=== PATIENT | male | born 1960 | race Caucasian/White ===

== ENCOUNTER 2020-12-19 11:39 | Outpatient (REF) | payer BC, SELFPAY ==
[2020-12-19 13:59] LABS: MANUAL DIFF FLAG NO
[2020-12-19 14:03] LABS: Basophils Absolute Auto 0.1 X10*3/uL (0.0-0.2); Basophils Percent Auto 1.2 % (0-2); Eosinophils Absolute Auto 0.2 X10*3/uL (0.0-0.4); Eosinophils Percent Auto 3.7 % (0-4); Hematocrit 44.7 % (42-52); Hemoglobin 15.6 g/dl (14.0-18.0); Imm Gran Abs Auto 0.03 X10*3/uL (0.00-0.03); Imm Gran Pct Auto 0.5 % (0.0-0.4); Lymphocytes Absolute Auto 1.4 X10*3/uL (1.2-4.9); Lymphocytes Percent Auto 24.9 % (20-40); Mean Corpuscular HGB Conc 34.9 g/dl (31.0-36.0); Mean Corpuscular Hemoglobin 30.6 pg (27.0-33.0); Mean Corpuscular Volume 87.8 fL (80-98); Mean Platelet Volume 9.4 fL (9.4-12.4); Monocytes Absolute Auto 0.5 X10*3/uL (0.1-1.2); Monocytes Percent Auto 9.6 % (2-11); Neutrophils Absolute Auto 3.4 X10*3/uL (2.0-8.3); Neutrophils Percent Auto 60.1 % (45-73); Platelet Count 241 X10*3/uL (160-400); Red Blood Count 5.09 X10*6/uL (4.60-5.80); Red Cell Distribution Width 11.6 % (11.0-16.0); White Blood Count 5.6 X10*3/uL (4.8-10.8)
[2020-12-19 14:05] LABS: Glucose Urine UA NEG (NEG); Leukocyte Esterase Urine NEG (NEG); Nitrite Urine NEG (NEG); PH 5.5 (5.0-8.0); Specific Gravity - Urine >= 1.030 (1.005-1.025); Urine Blood 1+ (NEG); Urine Ketones NEG (NEG); Urine Protein NEG (NEG-TRACE)
[2020-12-19 14:09] LABS: Appearance Urine HAZY; Color Urine YELLOW
[2020-12-19 14:15] LABS: Mucus Urine 2+ /LPF; Prothrombin Time 11.5 SEC (10.8-13.0); Squamous Epithelial Cell Urine 1+ /LPF
[2020-12-19 14:22] LABS: Estimated Average Glucose 91 mg/dL; Hemoglobin A1c % 4.8 %
[2020-12-19 14:24] LABS: Alanine Aminotransferase 30 U/L (0-40); Albumin Level 4.4 g/dL (3.5-5.0); Alkaline Phosphatase 50 U/L (39-117); Anion Gap 13 (12-20); Aspartate Amino Transferase 17 U/L (5-37); Bilirubin Total 1.1 mg/dL (0.0-1.0); Blood Urea Nitrogen 16 mg/dL (9-16); Calcium 9.3 mg/dL (8.4-10.2); Carbon Dioxide 27 mmol/L (22-29); Chloride 104 mmol/L (96-108); Estimated Glomerular Filt Rate > 60; Glucose Random 96 mg/dL (60-115); Potassium 3.8 mmol/L (3.3-5.1); Sodium 140 mmol/L (135-145)
[2020-12-19 14:47] LABS: TSH reflex Free T4 3.09 uIU/mL (0.32-4.0)
== END 2020-12-19 11:40 | disposition home or self-care (01) ==
LOC: HO.HMGCLDS 11:39
PROVIDERS: PCP Internal Medicine; Visit Provider Internal Medicine
DX: Z01.818 Encounter for other preprocedural examination (principal); E03.9 Hypothyroidism, unspecified; K21.9 Gastro-esophageal reflux disease without esophagitis; I44.4 Left anterior fascicular block; R94.31 Abnormal electrocardiogram [ECG] [EKG]
CPT/HCPCS: 36415; 80053; 81001; 81003; 83036; 84443; 85025; 85610

== ENCOUNTER → 2020-12-26 10:35 | Outpatient (BNVA) | payer BC, SELFPAY | PROVIDERS: PCP Internal Medicine; Visit Provider Internal Medicine Cardiovascular Disease ==

== ENCOUNTER → 2020-12-27 09:28 | Outpatient (REF) | payer BC, SELFPAY ==
--- NOTE | ~2020-12-27 | NM_ITS ---
Lexiscan Myocardial perfusion study Indication: Preoperative cardiovascular examination Technique: The patient was brought in for a Lexiscan perfusion study on 12/27/2020 and was injected 0.4 mg of Lexiscan intravenously. Within a minute of this injection 35 mCi of sestamibi was given intravenously. Images were obtained using the SPECT gamma camera interlaced with the gating device. Images were obtained in supine position. Resting perfusion study was performed on 12/28/2020. Patient was administered 35 mCi of sestamibi intravenously at rest. Images were then obtained in supine position. Total DLP 111mGy-cm. Images were processed with the software and compared side to side in short axis, horizontal long axis and vertical long axis views. Findings: Raw acquisition was reviewed. The stress perfusion study showed diminished tracer uptake along the basal inferior wall. With CT attenuation correction, this improves significantly suggesting diaphragmatic attenuation artifact. The gated study shows normal LV systolic function with calculated LVEF of 56%. LV cavity is normal in size. The gated study shows normal wall thickening and contraction of segments. Resting study shows no significant perfusion abnormality. Gating at rest reveals normal wall motion with ejection fraction at 58%. The findings are consistent with no reversible or fixed perfusion abnormality. NM/NM jose perf SPECT rest & str Impression: 1. Myocardial perfusion imaging study shows normal myocardial perfusion. No evidence of any ischemia or infarction. 2. Gated LVEF is 56% during stress and 58% during rest. 3. Transient ischemic dilatation not present. EKG component of the test reported separately.
--- NOTE | 2020-12-27 09:31 | CA_ITS ---
Acquisition Time: 2020-12-27 10:18:16 Total Exercise Time: 00:02:00 Test Indications: Abnormal ECG Medications: LEVOTHYROXINE OMEPRAZOLE ALBUTEROL Protocol: LEXISCAN Max HR: 081 BPM 50% of Pred: 162 BPM Max BP: 120/084 mmHG Max Work Load: 1.0 METS Pharmacological stress test with Lexiscan injection, while sitting and kicking his legs, without anginal symptoms, without arrythmia, with normotensive response to injection, with nondiagnostic EKG for ischemia. Nuclear images pending. Test reviewed with Dr Brantley. Referred By: Rizwan Barron Overread By: KAUR IBARRA
--- NOTE | 2020-12-27 09:31 | CA_ITS ---
Transthoracic Echocardiogram Patient (Last, First, Middle): Taran Gray, Gender: Male Date of : 1960 Age: 60 Procedure Date: 12/27/2020 Procedure Type: Transthoracic Echocardiogram Location: OP Height: 175.26 cm Weight: 99.79 kg BSA: 2.15 m2 Heart Rate: bpm BP: 142 / 74 mmHg Flute Grinder: BENJAMIN Referring MD: Rizwan Barron MD Symptoms: I44.4 - Left anterior fascicular block Study Quality: Fair ECG Rhythm: Sinus bradycardia Conclusions: - The left ventricular systolic function is normal. The visually estimated ejection fraction is between 55-60%. - No obvious valvular pathology seen on this study. Findings Left Ventricle Normal left ventricular cavity size. There is mildly increased left ventricular wall thickness. The left ventricular systolic function is normal. The visually estimated ejection fraction is between 55-60%. There is no evidence of regional wall motion abnormalities. E/E prime ratio is between 8 and 15 consistent with indeterminate filling pressures. Evidence suggests grade I (mild) diastolic dysfunction. Right Ventricle Normal right ventricular cavity size and systolic function. Atria Both atria are normal in size. Aortic Valve There is a normal trileaflet aortic valve. There is no aortic valve stenosis. There is no aortic valve regurgitation. Mitral Valve The mitral valve appears normal. There is trace mitral valve regurgitation. There is no mitral valve stenosis. Pulmonic Valve The pulmonic valve was not well visualized. Tricuspid Valve Normal tricuspid valve structure. There is trace tricuspid valve regurgitation. The pulmonary artery systolic pressure is normal. Great Vessels The aortic annulus, sinuses of valsalva, and asc aorta are normal in size. Venous The inferior vena cava is mildly dilated and collapses greater than 50% with inspiration. Pericardium/Pleural There is no evidence of pericardial effusion. Prior Study Comparison No prior study available for comparison. Recommendations, Care & Conclusions No obvious valvular pathology seen on this study. Measurements M-Mode Liner Measurements Normals - Women/Men AOV Cusps: 2.50 1.5-2.6 cm/m2 2D Linear Measurements IVSd: 1.07 0.6-0.9/0.6-1.0 cm LVIDd: 5.43 3.9-5.3/4.2-5.9 cm LVIDd Index: 2.53 2.4-3.2/2.2-3.1 cm/m2 LVIDs: 3.59 2.0-3.6 cm LVPWd: 1.06 0.7-1.1 cm Ao Root: 3.30 2.1-3.5 cm LA Diam: 4.00 2.7-3.8/3.0-4.0 cm LAIDs Index: 1.86 1.5-2.3 cm/m2 LV Mass: 282.86 67-162/88-224 g LV Mass Index: 131.56 43-95/49-115 g/m2 LVOT Diam: 2.40 3.0+(-)1.3 cm 2D Systolic Function EF 4C: 51.40 >55% EF 2C: 65.60 >55% EF BiP: 57.60 >55% Mitral Valve MV Pk E: 0.70 MV PK A: 0.72 MV Decel Time: 211.00 E/A: 1.00 E'Lateral: 6.85 E'Medial: 5.66 E/E' Med: 12.30 E/E' Lat: 10.20 PHT: 62.00 MVA PHT: 3.55 Decel Putnam: 3.31 Aortic Valve AoV Pk Freddy: 1.15 AoV Mn Freddy: 0.92 AoV VTI: 0.32 AoV Pk Grad: 5.00 Aov Mn Grad: 4.00 KM Cont.VTI: 2.97 LVOT LVOT Pk Freddy: 0.93 LVOT Mn Freddy: 0.63 LVOT VTI: 0.21 LVOT Pk Grad: 3.00 LVOT Mn Grad: 2.00 LVOT Diam: 2.40 LVOT Area: 4.52 Diastolic Function MV Pk E: 0.70 MV Pk A: 0.72 E/A: 1.00 E'Medial: 5.66 E/E' Med: 12.30 E' Laterial: 6.85 E/E' Lat: 10.20 Tricuspid Valve RA Press: 8.00 Great Vessels Aorta Ao Root-2D: 3.30 2.0-3.7 cm Ao Asc: 3.50 2.1-3.4 cm Ao Arch: 2.70 Pulmonary Valve PV Pk Freddy: 1.11 Peak PV Grad: 5.00 Updated in Other Vendor System with Status of Final Shahid Brantley MD electronically signed on 12/29/2020 11:00:30 AM with status of Final
== END ==
LOC: HO.CARD 09:28
PROVIDERS: Visit Provider Internal Medicine Cardiovascular Disease
DX: Z01.810 Encounter for preprocedural cardiovascular examination (principal); I44.4 Left anterior fascicular block
CPT/HCPCS: 78452; 93016; 93017; 93018; 93306; A9500; J0280; J2785

== ENCOUNTER → 2021-01-29 14:32 | Outpatient (BNVA) | payer BC, SELFPAY | PROVIDERS: PCP Internal Medicine; Visit Provider Internal Medicine Cardiovascular Disease ==

== ENCOUNTER 2021-07-04 11:07 | Outpatient (REF) | payer BC, SELFPAY ==
[2021-07-04 14:33] LABS: TSH reflex Free T4 2.24 uIU/mL (0.32-4.0)
== END 2021-07-04 11:08 | disposition home or self-care (01) ==
LOC: HO.HMGCLDS 11:07
PROVIDERS: PCP Internal Medicine; Visit Provider Internal Medicine
DX: E03.9 Hypothyroidism, unspecified (principal)
CPT/HCPCS: 36415; 84443

== ENCOUNTER 2022-04-10 10:58 | Outpatient (REF) | payer BC, SELFPAY ==
[2022-04-10 15:00] LABS: Alanine Aminotransferase 25 U/L (0-40); Albumin Level 4.3 g/dL (3.5-5.0); Alkaline Phosphatase 53 U/L (39-117); Anion Gap 14 (12-20); Aspartate Amino Transferase 17 U/L (5-37); Bilirubin Total 1.1 mg/dL (0.0-1.0); Blood Urea Nitrogen 17 mg/dL (9-16); Calcium 9.4 mg/dL (8.4-10.2); Carbon Dioxide 24 mmol/L (22-29); Chloride 106 mmol/L (96-108); Estimated Glomerular Filt Rate > 60; Glucose Random 69 mg/dL (60-115); Potassium 4.2 mmol/L (3.3-5.1); Sodium 140 mmol/L (135-145); Total Protein 7.3 g/dL (6.5-8.0)
[2022-04-10 15:06] LABS: TSH reflex Free T4 6.32 uIU/mL (0.32-4.0)
[2022-04-10 15:58] LABS: Free T4 (Free Thyroxine) 1.13 ng/dL (0.71-1.85)
== END 2022-04-10 10:59 | disposition home or self-care (01) ==
LOC: HO.HMGCLDS 10:58
PROVIDERS: PCP Internal Medicine; Visit Provider Internal Medicine
DX: E03.9 Hypothyroidism, unspecified (principal)
CPT/HCPCS: 36415; 80053; 84439; 84443

== ENCOUNTER 2022-10-13 15:11 | Outpatient (REF) | payer BC, SELFPAY ==
[2022-10-13 18:55] LABS: TSH reflex Free T4 5.56 uIU/mL (0.32-4.0)
[2022-10-13 19:30] LABS: Free T4 (Free Thyroxine) 1.05 ng/dL (0.71-1.85)
== END 2022-10-13 15:12 | disposition home or self-care (01) ==
LOC: HO.HMGCLDS 15:11
PROVIDERS: PCP Internal Medicine; Visit Provider Internal Medicine
DX: E03.9 Hypothyroidism, unspecified (principal)
CPT/HCPCS: 36415; 84439; 84443

== ENCOUNTER 2022-11-11 11:08 | Outpatient (REF) | payer BC, SELFPAY ==
--- NOTE | ~2022-11-11 | XR_ITS ---
EXAMINATION: XR CERVICAL SPINE CLINICAL INFORMATION: Neck pain COMPARISON: None available. TECHNIQUE: 3 views of the cervical spine were obtained. FINDINGS: Bone alignment is normal. No fracture or dislocation. Multilevel degenerative spondylosis and degenerative disc disease at C3-C4, C5-C6 and C6-C7. Prevertebral soft tissues are normal. XR/XR cervical spine 2V IMPRESSION: Degenerative changes.
== END 2022-11-11 11:09 | disposition home or self-care (01) ==
LOC: HO.HMGCX 11:08
PROVIDERS: PCP Internal Medicine; Visit Provider Internal Medicine
DX: M54.2 Cervicalgia (principal); K21.9 Gastro-esophageal reflux disease without esophagitis; E03.9 Hypothyroidism, unspecified
CPT/HCPCS: 72040

== ENCOUNTER 2023-04-20 09:41 | Outpatient (REF) | payer OTHER, SELFPAY ==
[2023-04-20 13:15] LABS: TSH reflex Free T4 0.14 uIU/mL (0.32-4.0)
[2023-04-20 15:19] LABS: Free T4 (Free Thyroxine) 1.15 ng/dL (0.71-1.85)
== END 2023-04-20 09:42 | disposition home or self-care (01) ==
LOC: HO.HMGCLDS 09:41
PROVIDERS: PCP Internal Medicine; Visit Provider Internal Medicine
DX: E03.9 Hypothyroidism, unspecified (principal)
CPT/HCPCS: 36415; 84439; 84443

== ENCOUNTER 2023-04-22 10:29 | Outpatient (AMB) | payer OTHER, SELFPAY ==
[2023-04-22 10:30] VITALS: BP 142/78; PULSE 61; O2SAT 98; BMI 32.8
--- NOTE | 2023-04-22 10:30 | MHC.PC.OV ---
Vital Signs 04/22/23 10:30 Height 5 ft 9 in Weight 222 lb BMI 32.8 BP 142/78 H Blood Pressure Location Rt brachial Position Sitting Pulse 61 Pulse Source Pulse Oximeter Pulse Oximetry (%) 98 Oxygen Delivery Method Room Air Intake Visit Reasons: annual PE Allergies No Known Allergies Allergy (Verified 04/22/23 10:30) Medication List - Last Reconciled 04/22/23 by Marshall Cheema MD albuterol sulfate 90 mcg/actuation (ProAir HFA) 1 inh inhalation QID PRN 30 days fluticasone propion-salmeterol 250-50 mcg/dose (Advair Diskus) 1 inh inhalation BID levothyroxine 175 mcg PO QAM 90 days omeprazole 20 mg PO DAILY 90 days Tobacco use date assessed: 04/22/23 Dental Screening Dental Screen Date: 04/22/23 Did you have a dental visit in the last 12 months?: Yes Did you have a dental problem in the last 6 months where you did not have access to dental care?: No Was dental information given to patient?: Patient has dentist HPI annual PE HPI Details Patient is 62-year-old gentleman came in today for physical examination Colonoscopy is up-to-date patient says that he started having colonoscopies late 40s as he was having rectal bleeds Last 2020 as per patient Hypothyroidism : Patient was levothyroxine 200 mcg recent TSH level came back abnormally low I have reduced to dose to 175 mcg he is to repeat labs again in 2 months GERD is stable with omeprazole 20 mg. BMI is elevated at 32.8, I would recommend to lose weight. Is complaining of pain both shoulders and would like to have a physical therapy and be evaluated by an orthopedic Recently patient got stung by a bee on his right elbow and needed prednisone however still ended up having blistering. He is doing better now Currently dealing with contact dermatitis both lower legs left more than right, patient has been very active outdoors taking care of his home Follow-up 6 month, physical exam 1 year [facility] Surgical History History of ankle surgery Family History Father Myocardial infarct Mother Stroke Social History Housing: House Alcohol intake: current Alcohol intake frequency: a few times a month Patient Tobacco Use Status: Never used Tobacco e-Cigarette/Vaping Use: Never Used Second Hand Smoke Exposure: No Current occupational status: retired Cognitive needs: No Hearing needs: No Vision needs: Yes Questionnaire PHQ-9 Over the last 2 weeks, how often have you been bothered by any of the following problems? 1. Little interest or pleasure in doing things: not at all 2. Feeling down, depressed, or hopeless: not at all 3. Trouble falling or staying asleep, or sleeping too much: more than half the days 4. Feeling tired or having little energy: not at all 5. Poor appetite or overeating: not at all 6. Feeling bad about yourself - or that you are a failure or have let yourself or your family down: not at all 7. Trouble concentrating on things, such as reading the newspaper or watching television: not at all 8. Moving or speaking so slowly that other people could have noticed. Or the opposite - being so fidgety or restless that you have been moving around a lot more than usual: not at all 9. Thoughts that you would be better off or of hurting yourself in some way: not at all Total score: 2 Depression Screening Interpretation: Negative 98245 - PHQ-9 Billing: Yes Source: Developed by Drs. Gordo Goodson, Erica Reed, Roque Garner and colleagues, with an educational julio from [employer] Thrive Questionnaire Date Thrive assessed: 04/22/23 I am a: Patient What is your living situation today?: I have a steady place to live Within the past 12 months, did the food you bought not last and you didn't have the money to get more?: Never true Do you have trouble paying for medicines?: No Do you have trouble getting transportation to medical appointments?: No Do you have trouble paying your heating and electricity bill?: No Do you have trouble taking care of your child, family member or friend?: No Do you have trouble with day-to-day activities such as bathing, preparing meals, shopping, managing finances, etc.?: No Are you currently unemployed and looking for a job?: No Are you interested in more education?: No AUDIT C Alcohol Use Questionnaire (AUDIT-C) 1. How often do you have a drink containing alcohol?: 2-4 times a month 2. How many drinks containing alcohol do you have on a typical day when you are drinking?: 1 or 2 3. How often do you have six or more drinks on one occasion?: Never Total Score: 2 Score Reviewed/Action Taken: Yes WILMER-7 AMB Questionnaire WILMER-7 Date WILMER - 7 assessed: 04/22/23 Feeling nervous, anxious, or on edge: 0 = Not at all Not being able to stop or control worryin = Not at all Worrying too much about different things: 0 = Not at all Trouble relaxin = Not at all Being so restless that it is hard to sit still: 0 = Not at all Becoming easily annoyed or irritable: 0 = Not at all Feeling afraid as if something awful might happen: 0 = Not at all Total WILMER-7 score (0-4 normal; 5-9 mild; 10-14 moderate; 15-21 severe): 0 Source: Developed by Drs. Gordo Goodson, Erica Reed, Roque Garner and colleagues, with an educational julio from [employer] WILMER-7 Assessment Billing WILMER-7 Assessment Tool: WILMER-7 Assessment [id number] Review of Systems Const Denies chills, Denies fever(s) and Denies headache(s) Eyes Denies blurry vision ENT Denies headache(s), Denies nasal discharge, Denies nasal obstruction, Denies odynophagia and Denies sinus pain Card Denies chest pain at rest and Denies chest pain with activity Resp Denies cough and Denies hemoptysis GI Denies diarrhea, Denies odynophagia, Denies vomiting and Denies hematemesis Reports as per HPI Musc Denies abnormal gait Skin/Breast Reports as per HPI Neuro Denies Neuro-related abnormal movements, Denies Abnormal speech present, Denies abnormal gait, Denies headache(s) and Denies Sensory deficit (Neuro) Psych Denies mood swings and Denies paranoia Endo Reports as per HPI Lukasz/Lymph Reports as per HPI Aller/Immun Reports as per HPI Physical exam (Primary Care) Vital Signs: Last Vital Signs Pulse 61 04/22/23 10:30 BP 142/78 H 04/22/23 10:30 Pulse Ox 98 04/22/23 10:30 Oxygen Delivery Method Room Air 04/22/23 10:30 BMI result Body Mass Index 32.8 Tobacco/Smoking Status: Tobacco use Status Tobacco use date assessed 04/22/23 04/22/23 10:33 Patient Tobacco Use Status Never used Tobacco 04/22/23 10:33 e-Cigarette/Vaping Use Never Used 04/22/23 10:33 PHQ-9: PHQ-9 Score PHQ-9: Total score 2 04/22/23 11:05 Depression Screening Interpretation: Negative Thrive Assessment: Date of Thrive Assessment Date Thrive assessed 04/22/23 04/22/23 11:05 Const General: cooperative, comfortable and no acute distress Orientation/consciousness: patient oriented x3 HENMT Head: Yes normocephalic and Yes atraumatic Eyes General: appearance normal, both eyes and all related structures Pupils: Equal, round and reactive pupils present EOM: EOMs intact bilaterally Neck Neck: Yes supple and No lymphadenopathy Thyroid: Thyroid normal Lymphatic: no lymphadenopathy noted Resp Effort & Inspection: normal respiratory effort and able to speak in complete sentences Auscultation: clear to auscultation bilaterally Cardio Heart sounds: S1 normal heart sound present and S2 normal heart sound present GI Palpation (GI): Soft to palpation and nontender Auscultation: normal bowel sounds General: Yes no CVA tenderness Back/Spine/Pelvis Back: no CVA tenderness Skin Other: Erythematous rash lower extremity left more than right. Bee sting inflammation is better right elbow General skin exam: elasticity normal and turgor normal Neuro General: patient oriented x3 and gait normal Cranial nerves: Yes Equal, round and reactive pupils present Speech: No Abnormal speech present Sensory Exam: No Sensory deficit (Neuro) Coordination: tandem gait normal and Romberg test negative Extrem General: Yes normal exam except as noted and No edema Assessment and Plan Assessment & Plan (1) Encounter for general adult medical examination with abnormal findings: Code(s): Z00.01 - Encounter for general adult medical examination with abnormal findings (2) Hypothyroidism: Code(s): E03.9 - Hypothyroidism, unspecified Qualifiers: Hypothyroidism type: unspecified Qualified Code(s): E03.9 - Hypothyroidism, unspecified (3) Chronic GERD: Code(s): K21.9 - Gastro-esophageal reflux disease without esophagitis (4) Asthma, moderate persistent: Code(s): J45.40 - Moderate persistent asthma, uncomplicated Qualifiers: Asthma complication type: uncomplicated Qualified Code(s): J45.40 - Moderate persistent asthma, uncomplicated (5) Bee sting reaction: Code(s): T63.441A - Toxic effect of venom of bees, accidental (unintentional), initial encounter Qualifiers: Encounter type: initial encounter Injury intent: accidental or unintentional Qualified Code(s): T63.441A - Toxic effect of venom of bees, accidental (unintentional), initial encounter (6) Shoulder pain, bilateral: Code(s): M25.511 - Pain in right shoulder; M25.512 - Pain in left shoulder Qualifiers: Chronicity: chronic Qualified Code(s): M25.511 - Pain in right shoulder; M25.512 - Pain in left shoulder; G89.29 - Other chronic pain (7) Allergic contact dermatitis of lower leg: Code(s): L23.9 - Allergic contact dermatitis, unspecified cause Plan Patient is 62-year-old gentleman came in today for physical examination Colonoscopy is up-to-date patient says that he started having colonoscopies late 40s as he was having rectal bleeds Last 2020 as per patient Hypothyroidism : Patient was levothyroxine 200 mcg recent TSH level came back abnormally low I have reduced to dose to 175 mcg he is to repeat labs again in 2 months GERD is stable with omeprazole 20 mg. BMI is elevated at 32.8, I would recommend to lose weight. Is complaining of pain both shoulders and would like to have a physical therapy and be evaluated by an orthopedic Recently patient got stung by a bee on his right elbow and needed prednisone however still ended up having blistering. He is doing better now Currently dealing with contact dermatitis both lower legs left more than right, patient has been very active outdoors taking care of his home Follow-up 6 month, physical exam 1 year Orders: Orders TSH reflex Free T4 2 Months E03.9 - Hypothyroidism, unspecified, J45.40 - Moderate persistent asthma, uncomplicated, K21.9 - Gastro-esophageal reflux disease without esophagitis, Z00.01 - Encounter for general adult medical examination with abnormal findings Complete Blood Count Auto Diff Today E03.9 - Hypothyroidism, unspecified, J45.40 - Moderate persistent asthma, uncomplicated, K21.9 - Gastro-esophageal reflux disease without esophagitis, Z00.01 - Encounter for general adult medical examination with abnormal findings PT Evaluation and Treatment Today M25.511 - Pain in right shoulder, M25.512 - Pain in left shoulder Comprehensive Otisco. Panel Fast Today E03.9 - Hypothyroidism, unspecified, J45.40 - Moderate persistent asthma, uncomplicated, K21.9 - Gastro-esophageal reflux disease without esophagitis, Z00.01 - Encounter for general adult medical examination with abnormal findings Lipid Panel Today E03.9 - Hypothyroidism, unspecified, J45.40 - Moderate persistent asthma, uncomplicated, K21.9 - Gastro-esophageal reflux disease without esophagitis, Z00.01 - Encounter for general adult medical examination with abnormal findings Referrals Orthopedics Referral M25.511 - Pain in right shoulder, M25.512 - Pain in left shoulder Medications: New triamcinolone acetonide 0.1% 1 appl topical DAILY 80 grams 0RF 30 days Coding Level of Care Code Est Pt Prev Care 40-64y(77767) Diagnoses Encounter for general adult medical examination with abnormal findings Z00.01 Hypothyroidism, unspecified type E03.9 Hypothyroidism type: unspecified Chronic GERD K21.9 Moderate persistent asthma without complication J45.40 Asthma complication type: uncomplicated Bee sting reaction, accidental or unintentional, initial encounter T63.441A Encounter type: initial encounter Injury intent: accidental or unintentional Chronic pain of both shoulders M25.511; M25.512; G89.29 Chronicity: chronic Allergic contact dermatitis of lower leg L23.9 Additional Codes WILMER-7 Assessment Billing - WILMER-7 Assessment Tool: WILMER-7 Assessment [id number] ([id number])
== END 2023-04-22 12:04 | disposition home or self-care (01) ==
PROVIDERS: Visit Provider Internal Medicine
DX: Z00.01 Encounter for general adult medical examination with abnormal findings (principal); E03.9 Hypothyroidism, unspecified; K21.9 Gastro-esophageal reflux disease without esophagitis; J45.40 Moderate persistent asthma, uncomplicated; T63.441A Toxic effect of venom of bees, accidental (unintentional), initial encounter; M25.511 Pain in right shoulder; M25.512 Pain in left shoulder; G89.29 Other chronic pain; L23.9 Allergic contact dermatitis, unspecified cause
CPT/HCPCS: 99396

== ENCOUNTER 2023-05-21 08:06 | Outpatient (REF) | payer OTHER, SELFPAY | END 2023-05-21 08:07 | disposition home or self-care (01) | LOC: HO.HOSX 08:06 | PROVIDERS: Visit Provider Orthopaedic Surgery | DX: Z13.89 Encounter for screening for other disorder (principal) ==

== ENCOUNTER 2023-07-01 08:48 | Outpatient (REF) | payer OTHER, SELFPAY ==
--- NOTE | ~2023-07-01 | XR_ITS ---
EXAMINATION: XR SHOULDER, LEFT CLINICAL INFORMATION: Pain. COMPARISON: None available. TECHNIQUE: AP external rotation, Grashey, scapular Y, and axillary views of the left shoulder. FINDINGS: Bony alignment and mineralization are normal. There is marked osteoarthritic change of the left glenohumeral joint. The acromioclavicular and coracoclavicular intervals are normal. No fracture or dislocation is seen. There is no focal soft tissue calcification or foreign body. No left pneumothorax is seen. XR/XR shoulder LT min 2V IMPRESSION: 1. There is marked osteoarthritic change of the left glenohumeral joint. 2. No acute fracture or dislocation is seen.
--- NOTE | ~2023-07-01 | XR_ITS ---
EXAMINATION: XR SHOULDER, RIGHT CLINICAL INFORMATION: Pain. COMPARISON: Right shoulder MRI dated 08/22/2009. TECHNIQUE: AP external rotation, Grashey, scapular Y, and axillary views of the right shoulder. FINDINGS: Bony alignment and mineralization are normal. The glenohumeral joint is intact and shows marked osteoarthritic change. There is marked calcific tendinitis of the right rotator cuff insertion. There is chronic widening of the right acromioclavicular joint to 1.6 cm. Some erosion is noted of the distal articular surface of the clavicle. The coracoclavicular interval is normal. No foreign body is seen. There is no right pneumothorax. XR/XR shoulder RT min 2V IMPRESSION: 1. There is marked osteoarthritic change of the right glenohumeral joint. 2. There is a chronic-appearing separation injury of the right acromioclavicular joint. 3. There is coarse calcific tendinitis of the right rotator cuff insertion.
[2023-07-01 11:16] LABS: MANUAL DIFF FLAG NO
[2023-07-01 11:39] LABS: Basophils Absolute Auto 0.1 X10*3/uL (0.0-0.2); Basophils Percent Auto 1.4 % (0-2); Eosinophils Absolute Auto 0.2 X10*3/uL (0.0-0.4); Eosinophils Percent Auto 3.8 % (0-4); Hematocrit 46.1 % (42.0-52.0); Hemoglobin 15.9 g/dl (14.0-18.0); Imm Gran Abs Auto 0.04 X10*3/uL (0.00-0.03); Imm Gran Pct Auto 0.8 % (0.0-0.4); Lymphocytes Absolute Auto 1.2 X10*3/uL (1.2-4.9); Lymphocytes Percent Auto 24.6 % (20-40); Mean Corpuscular HGB Conc 34.5 g/dl (31.0-36.0); Mean Corpuscular Hemoglobin 30.4 pg (27.0-33.0); Mean Corpuscular Volume 88.1 fL (80.0-98.0); Mean Platelet Volume 9.2 fL (9.4-12.4); Monocytes Absolute Auto 0.5 X10*3/uL (0.1-1.2); Monocytes Percent Auto 10.4 % (2-11); Platelet Count 219 X10*3/uL (160-400); Red Blood Count 5.23 X10*6/uL (4.60-5.80); Red Cell Distribution Width 11.9 % (11.0-16.0)
[2023-07-01 12:21] LABS: Alanine Aminotransferase 19 U/L (0-40); Albumin Level 4.3 g/dL (3.5-5.0); Alkaline Phosphatase 42 U/L (39-117); Anion Gap 9 (12-20); Aspartate Amino Transferase 18 U/L (5-37); Bilirubin Total 1.2 mg/dL (0.0-1.0); Blood Urea Nitrogen 19 mg/dL (9-16); Calcium 9.3 mg/dL (8.4-10.2); Carbon Dioxide 29 mmol/L (22-29); Chloride 107 mmol/L (96-108); Cholesterol 145 mg/dL (<200); Estimated Glomerular Filt Rate > 60; Glucose Fasting 91 mg/dL (60-99); HDL Cholesterol 37 mg/dL (>40); LDL Cholesterol Calculated 87 mg/dL (<100); Potassium 4.1 mmol/L (3.3-5.1); Sodium 141 mmol/L (135-145); Triglycerides 108 mg/dL (<150)
[2023-07-01 12:38] LABS: TSH reflex Free T4 0.54 uIU/mL (0.32-4.0)
== END 2023-07-01 08:49 | disposition home or self-care (01) ==
LOC: HO.HMGCX 08:48
PROVIDERS: Absent Provider Orthopaedic Surgery; PCP Internal Medicine; Visit Provider Internal Medicine
DX: M25.511 Pain in right shoulder (principal); M25.512 Pain in left shoulder; J45.40 Moderate persistent asthma, uncomplicated; E03.9 Hypothyroidism, unspecified; K21.9 Gastro-esophageal reflux disease without esophagitis; Z00.01 Encounter for general adult medical examination with abnormal findings
CPT/HCPCS: 36415; 73030; 80053; 80061; 84443; 85025

== ENCOUNTER 2023-08-24 11:00 | Outpatient (RCR) | payer OTHER, SELFPAY ==
--- NOTE | 2023-07-20 11:11 | MHC.PT.EP ---
[facility] [place] Office [place] Office [place] Office [address] Lynne Stein [address] [phone] F: [phone] F: [phone] F: [phone] F: [phone] Physical Therapy Plan of Care Date of Evaluation: 07/20/23 Date of Surgery: n/a Diagnosis: B shoulder pain Assessment: Patient is a 62 year old male presenting to PT with complaints of pain in his B shoulders. Pt reports onset of pain began a few years ago due to insidious onset. He presents today with impairments in pain, ROM, shoulder strength, and posture. Pt's current occupation is retired, with baseline physical activities including ADLs, household duties, reaching, lifting. Pt expresses [facility] goal of reducing pain, and is motivated to work towards this in PT. Clinical presentation today is most consistent with signs and sx associated with B shoulder pain and pt will benefit from skilled PT 2 week x 4 weeks to address the following problems and impairments noted upon evaluation: pain, ROM, shoulder strength, and posture. These problems limit the patient with the following functional activities: ADLs, household duties, reaching, lifting, sleeping. The prescribed treatment plan of care is medically necessary. Co-morbidities of none were identified and taken into considerations of plan of care. Pt was educated on HEP, role of PT, prognosis, POC. Frequency and Duration: The patient will be seen 2 x week x 4 weeks Short Term Goals: Pt will demonstrate equal ROM B with minimal pain in 2 weeks. Pt will demonstrate improved R shoulder MMT strength by 1/3 grade in 2 weeks. Pt will demonstrate improved postural awareness by sitting with biomechanically correct posture without cues throughout session to improve overall postural function in 2 weeks. Halfway Goals: Pt will demonstrate improved SPADI score by 13 points in 4 weeks for improved functional mobility. Pt will demonstrate ability to reach OH with min to no pain in 4 weeks for improved ability reach cabinets at home. Pt will demonstrate ability to complete household lifting in 4 weeks with min to no pain in 4 weeks for return to PLOF. Treatment Plan: Modalities to reduce pain, spasms and effusion. Manual therapy to restore motion and function. Therapeutic exercise to improve strength and flexibility. Neuromuscular re-education for posture and balance. Therapeutic activities to return to functional activities of daily living. Electronically signed by: Sharon Anderson, PT, DPT, ATC Please sign and return to therapist. Thank you for your referral.
--- NOTE | 2023-09-24 09:08 | MHC.PT.DC ---
[facility] [place] Office [place] Office [place] Office [address] Lynne Stein [address] [phone] F: [phone] F: [phone] F: [phone] F: [phone] Physical Therapy Discharge Report Diagnosis: B shoulder pain Date of Surgery: n/a Date of Evaluation: 07/20/23 Date of Discharge: 09/24/23 Treatments to Date: 7 Cancellations to Date: 0 No Shows to Date: 0 Discharge Status: Recommend MD Follow-up Discharge Summary: PT put on 30 day hold while he pursues appointment with MD. 30 days has passed and pt has not returned so therefore will be d/c per policy. Electronically signed by: Sharon Anderson, PT, DPT, ATC Please sign and return to therapist. Thank you for your referral.
== END 2023-09-24 09:08 | disposition home or self-care (01) ==
LOC: HO.PTCHIC 11:00
PROVIDERS: PCP Internal Medicine; Visit Provider Internal Medicine
DX: M25.511 Pain in right shoulder (principal); M25.512 Pain in left shoulder
CPT/HCPCS: 97110; 97140; 97161

== ENCOUNTER 2023-09-16 10:54 | Outpatient (AMB) | payer OTHER, SELFPAY ==
[2023-09-16 10:56] VITALS: BMI 32.8
--- NOTE | 2023-09-16 10:56 | MHC.OFFVIS ---
Intake Vital Signs 09/16/23 10:56 Height 5 ft 9 in Weight 222 lb BMI 32.8 Intake Visit Reasons: QUALITY ASSURANCE MONITOR-right shoulder pain/ Confirmed Intake Note: Taran is a 62 year old Left handed male who presents as a new patient with Right shoulder pain and weakness. The patient describes his pain as sharp in nature. The patient states that he did undergo right shoulder surgery in [place] several years ago. He got fairly good relief from that procedure initially. The patient states that he re-injured his shoulder approximately 1 year ago while lifting a heavy object. Since that time his symptoms have gotten worse in spite of continued non operative treatments. He has done formal physical therapy which aggravated his pain. He has also tried Tylenol and anti-inflammatory medicines which gave him minimal relief. He has had cortisone injections in the past which gave him no relief. The patient has difficulty lifting his right hand above shoulder height. Allergies No Known Allergies Allergy (Verified 09/16/23 11:04) Medication List - Last Reconciled 09/16/23 by Forrest Chan MD albuterol sulfate 90 mcg/actuation (ProAir HFA) 1 inh inhalation QID PRN 30 days fluticasone propion-salmeterol 250-50 mcg/dose (Advair Diskus) 1 inh inhalation BID levothyroxine 175 mcg PO QAM 90 days omeprazole 20 mg PO DAILY 90 days [facility] Surgical History (Updated 09/16/23 @ 11:09 by Megan Winkler CMA) History of left hip replacement (~2019) History of appendectomy (~2018) Hx of shoulder surgery (~2009) History of ankle surgery Family History Father Myocardial infarct Mother Stroke Social History Housing: House Alcohol intake: current Alcohol intake frequency: a few times a month Patient Tobacco Use Status: Never used Tobacco e-Cigarette/Vaping Use: Never Used Second Hand Smoke Exposure: No Current occupational status: retired Cognitive needs: No Hearing needs: No Vision needs: Yes Physical Exam Vital Signs: BMI result Body Mass Index 32.8 Const Other: Well-nourished well-developed very friendly male awake alert and oriented x3 in no acute distress Extrem Other: Bilateral upper extremity examination shows good capillary refill, no skin lesions noted, normal sensation light touch Right shoulder examination shows decreased range of motion when compared to his left shoulder, 4+ out of 5 strength with supraspinatus testing, positive impingement signs, tenderness over his acromioclavicular joint, no instability Results Reviewed Results Reviewed: X-rays of the patient's right shoulder show severe acromioclavicular joint narrowing, a type 2 acromion, no acute bony abnormalities Assessment & Plan Assessment & Plan (1) Right shoulder pain: Code(s): M25.511 - Pain in right shoulder Plan Mr. Gray presents with right shoulder pain and weakness due to impingement syndrome, acromioclavicular joint arthritis and possible rotator cuff tearing. Thus, I will send the patient for an MRI of his right shoulder for further evaluation. If he does have a full-thickness rotator cuff tear I will recommend surgical repair to optimize is future functional level. The patient will continue with his range of motion exercises in the meantime. Feel free to call me at any time should questions regarding his orthopedic management arise. Thank you very much for asking me to see this very friendly gentleman. I spent 22 minutes in reviewing the patient's records and imaging studies, seeing the patient and documenting in the medical record. Orders: Orders MR shoulder RT wo con Today M25.511 - Pain in right shoulder Coding Level of Care Code New Pt Level 2 (26953) Diagnoses Right shoulder pain M25.511
== END 2023-09-16 11:31 | disposition home or self-care (01) ==
PROVIDERS: PCP Internal Medicine; Visit Provider Orthopaedic Surgery
DX: M25.511 Pain in right shoulder (principal)
CPT/HCPCS: 99202

== ENCOUNTER → 2023-09-16 10:54 | Outpatient (BNVA) | payer OTHER, SELFPAY | PROVIDERS: PCP Internal Medicine; Visit Provider Orthopaedic Surgery | DX: M25.511 Pain in right shoulder (principal) | CPT/HCPCS: 99202 ==

== ENCOUNTER 2023-10-11 08:43 | Outpatient (REF) | payer OTHER, SELFPAY ==
--- NOTE | ~2023-10-11 | MR_ITS ---
EXAMINATION: MR SHOULDER WITHOUT CONTRAST, RIGHT CLINICAL INFORMATION: Right shoulder pain. Limited range of motion. COMPARISON: Most recent right shoulder radiographs dated 07/01/2023 and right shoulder MRI dated 08/22/2009. TECHNIQUE: MRI of the shoulder without contrast was performed on a high-field scanner. FINDINGS: ROTATOR CUFF: Mild supraspinatus and infraspinatus tendinosis. There is intrasubstance and bursal surface partial tearing of the supraspinatus tendon measuring approximately 2.1 x 1.1 cm (AP x ML). Infraspinatus intrasubstance partial tearing with possible extension to the bursal surface measuring up to 1.4 x 1.3 cm (AP x ML). Mild subscapularis tendinosis with probable articular surface fraying. Overall, tendinosis and tearing is new/increased when compared to the prior examination. No muscle atrophy or fatty infiltration. BICEPS: Intact. CORACOACROMIAL ARCH: The undersurface of the acromion is attenuated, consistent with acromioplasty. Distal clavicular resection. LABRUM/CAPSULE: Attenuation and heterogeneity throughout the superior, posterosuperior, posterior, posteroinferior, and inferior labrum, consistent with diffuse degenerative tearing and new when compared to the prior examination. Intact inferior joint capsule. GLENOHUMERAL JOINT/MARROW: Diffuse glenohumeral articular cartilage thinning with areas of humeral head and glenoid full-thickness loss. Mild glenoid subchondral cystic change. Prominent marginal osteophytes. Small joint effusion. Multiple ossified loose bodies within the proximal long head biceps tendon sheath measuring up to 1.4 and 1.1 cm. Osteoarthritis is new when compared to the prior examination. MR/MR shoulder RT wo con IMPRESSION: 1. Mild supraspinatus and infraspinatus tendinosis with intrasubstance and bursal surface partial tearing of the supraspinatus tendon measuring 2.1 x 1.1 cm (AP x ML). Intrasubstance partial tearing of the infraspinatus tendon with possible extension to the bursal surface measuring 1.4 x 1.3 cm (AP x ML). Mild subscapularis tendinosis with probable articular surface fraying. Overall tendinosis and tearing is new/increased when compared to the prior examination. 2. [id number] glenohumeral osteoarthritis, new when compared to the prior examination. Small joint effusion. Multiple ossified loose bodies within the proximal long head biceps tendon sheath measuring up to 1.1 cm. 3. Diffuse degenerative tearing of the glenoid labrum, new when compared to the prior examination. 4. Post surgical change consistent with acromioplasty and distal clavicular resection, new when compared to the prior examination.
== END 2023-10-11 08:44 | disposition home or self-care (01) ==
LOC: HO.MRI 08:43
PROVIDERS: PCP Internal Medicine; Visit Provider Orthopaedic Surgery
DX: M25.511 Pain in right shoulder (principal)
CPT/HCPCS: 73221

== ENCOUNTER 2023-10-21 09:42 | Outpatient (AMB) | payer OTHER, SELFPAY ==
[2023-10-21 09:46] VITALS: BMI 32.8
--- NOTE | 2023-10-21 09:46 | MHC.OFFVIS ---
Intake Vital Signs 10/21/23 09:46 Height 5 ft 9 in Weight 222 lb BMI 32.8 Intake Visit Reasons: OV-right shoulder MRI review Intake Note: Taran is a 62 year old Left handed male who presents with progressively worsening right shoulder pain and stiffness. The patient describes his pain as sharp in nature. The patient states that he did undergo right shoulder surgery in [place] several years ago. He got fairly good relief from that procedure initially. The patient states that he re-injured his shoulder approximately 1 year ago while lifting a heavy object. Since that time his symptoms have gotten worse in spite of continued non operative treatments. He has done formal physical therapy which aggravated his pain. He has also tried Tylenol and anti-inflammatory medicines which gave him minimal relief. He has had cortisone injections in the past which gave him no relief. The patient has difficulty lifting his right hand above shoulder height. Patient states he has not been able to exercise because of his pain and stiffness. Allergies No Known Allergies Allergy (Verified 10/21/23 09:49) Medication List - Last Reconciled 10/21/23 by Forrest Chan MD albuterol sulfate 90 mcg/actuation (ProAir HFA) 1 inh inhalation QID PRN 30 days fluticasone propion-salmeterol 250-50 mcg/dose (Advair Diskus) 1 inh inhalation BID levothyroxine 175 mcg PO QAM 90 days omeprazole 20 mg PO DAILY 90 days [facility] Surgical History (Updated 09/16/23 @ 11:09 by Megan Winkler CMA) History of left hip replacement (~2019) History of appendectomy (~2017) Hx of shoulder surgery (~2009) History of ankle surgery Family History Father Myocardial infarct Mother Stroke Social History (Updated 10/21/23 @ 09:49 by Megan Winkler CMA) Housing: House Alcohol intake: current Alcohol intake frequency: a few times a month Patient Tobacco Use Status: Never used Tobacco e-Cigarette/Vaping Use: Never Used Second Hand Smoke Exposure: No Current occupational status: retired 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 Cognitive needs: No Hearing needs: No Vision needs: Yes Physical Exam Vital Signs: BMI result Body Mass Index 32.8 Const Other: Well-nourished well-developed very friendly male awake alert and oriented x3 in no acute distress Extrem Other: Bilateral upper extremity examination shows good capillary refill, no skin lesions noted, normal sensation light touch Right shoulder examination shows decreased active and passive range of motion when compared to his left shoulder, 4+ out of 5 strength with supraspinatus testing, positive impingement signs, tenderness over his acromioclavicular joint, no instability Results Reviewed Results Reviewed: MRI of the patient's right shoulder show severe acromioclavicular joint narrowing, a type 2 acromion, moderate glenohumeral joint degenerative changes, signal change within the supraspinatus tendon most likely due to adhesive capsulitis Assessment & Plan Assessment & Plan (1) Impingement of right shoulder: Code(s): M25.811 - Other specified joint disorders, right shoulder Plan Mr. Gray presents with right shoulder pain and stiffness due to impingement syndrome, acromioclavicular joint arthritis, glenohumeral joint arthritis and adhesive capsulitis. I had a lengthy discussion with the patient regarding the treatment options. At this point he has failed continued non operative treatments. The risks and benefits of right shoulder surgery were discussed at length with the patient. The patient wishes to proceed with surgery. Surgery will likely involve right shoulder diagnostic arthroscopy with distal clavicle excision, acromioplasty, capsular release and manipulation under anesthesia. The patient will be scheduled for next available date. He will follow-up as instructed. Feel free to call me at any time should questions regarding his orthopedic management arise. I spent 22 minutes in reviewing the patient's records and imaging studies, seeing the patient and documenting in the medical record. Coding Level of Care Code Est Pt Level 2 (27890) Diagnoses Impingement of right shoulder M25.811
== END 2023-10-21 09:58 | disposition home or self-care (01) ==
PROVIDERS: PCP Internal Medicine; Visit Provider Orthopaedic Surgery
DX: M25.811 Other specified joint disorders, right shoulder (principal)
CPT/HCPCS: 99214

== ENCOUNTER → 2023-10-21 09:42 | Outpatient (BNVA) | payer OTHER, SELFPAY | PROVIDERS: PCP Internal Medicine; Visit Provider Orthopaedic Surgery | DX: M25.811 Other specified joint disorders, right shoulder (principal) | CPT/HCPCS: 99212 ==

== ENCOUNTER 2023-11-11 11:50 | Outpatient (AMB) | payer OTHER, SELFPAY ==
[2023-11-11 11:54] VITALS: BP 134/82; PULSE 62; O2SAT 95; BMI 33.5
--- NOTE | 2023-11-11 11:54 | A.OFFPC_ITS ---
Vital Signs 3 11/11/23 11:54 Height 5 ft 9 in Weight 227 lb BMI 33.5 BP 134/82 Blood Pressure Location Rt brachial Position Sitting Pulse 62 Pulse Source Pulse Oximeter Pulse Oximetry (%) 95 Oxygen Delivery Method Room Air Intake Visit Reasons: Rt Shoulder Arthroscopy~ Allergies No Known Allergies Allergy (Verified 11/11/23 11:56) Medication List - Last Reconciled 11/11/23 by Marshall Cheema MD albuterol sulfate 90 mcg/actuation (ProAir HFA) 1 inh inhalation QID PRN 30 days fluticasone propion-salmeterol 250-50 mcg/dose (Advair Diskus) 1 inh inhalation BID levothyroxine 175 mcg PO QAM 90 days multivitamin 1 tab PO DAILY omeprazole 20 mg PO DAILY 90 days Tobacco use date assessed: 11/11/23 Dental Screening Dental Screen Date: 04/22/23 Did you have a dental visit in the last 12 months?: Yes Did you have a dental problem in the last 6 months where you did not have access to dental care?: No Was dental information given to patient?: Patient has dentist HPI Rt Shoulder Arthroscopy~ 2 HPI0 Details Patient is 62-year-old gentleman came in today for preop evaluation Patient is going in for right shoulder procedure by Dr. Chan, on 11/20/2023 We did the EKG today which showed no changes from EKG done in 2020, he continued to have left anterior vesicular block Patient was evaluated by Cardiology in 2020, he underwent myocardial perfusion imaging prior to hip surgery in 2020, which was within normal limits. Echocardiogram shows normal structure of the heart. Patient is symptom-free, there is no shortness a breath even though he is asthmatic he is using his inhaler with good control of symptoms There is no chest pain There is no fever chills sore throat nausea vomiting diarrhea abdominal pain New set of lab order is due which I have ordered for him EKG done today imaging included along with his old EKG for your review as well Patient is stable for right shoulder procedure [facility] Medical History Slow to wake up after anesthesia Environmental allergies Seasonal allergies Bilateral shoulder pain GERD (gastroesophageal reflux disease) Hypothyroidism Asthma Surgical History Hx of colonoscopy (~2020) History of thumb surgery (~2020) History of left hip replacement (~2019) History of appendectomy (~2017) Hx of shoulder surgery (~2009) History of ankle surgery Family History Father Myocardial infarct Mother Stroke Social History Household Members: Spouse Housing: House Are you a primary physician assistant primary care to a significant other at home: No Do you presently have visiting nurse or other home services: No Alcohol intake: current Alcohol intake frequency: a few times a month Patient Tobacco Use Status: Never used Tobacco e-Cigarette/Vaping Use: Never Used Second Hand Smoke Exposure: No Current occupational status: retired 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 Cognitive needs: No Hearing needs: No Vision needs: Yes Questionnaire Thrive Questionnaire Date Thrive assessed: 04/22/23 AUDIT C Alcohol Use Questionnaire (AUDIT-C) 1. How often do you have a drink containing alcohol?: 2-3 times a week 2. How many drinks containing alcohol do you have on a typical day when you are drinking?: 1 or 2 Total Score: 3 Score Reviewed/Action Taken: Yes WILMER-7 AMB Questionnaire WILMER-7 Date WILMER - 7 assessed: 04/22/23 Source: Developed by Drs. Gordo Goodson, Erica Reed, Roque Garner and colleagues, with an educational julio from [employer]. Review of Systems Const Denies chills and Denies fever(s) ENT Denies epistaxis and Denies nasal discharge Card Denies chest pain Resp Denies chest congestion, Denies cough and Denies hemoptysis GI Denies diarrhea and Denies nausea Skin/Breast Denies rash Neuro Reports no additional complaints Psych Reports no additional complaints Endo Reports no additional complaints Physical exam (Primary Care) Vital Signs: Last Vital Signs Pulse 62 11/11/23 11:54 BP 134/82 11/11/23 11:54 Pulse Ox 95 11/11/23 11:54 Oxygen Delivery Method Room Air 11/11/23 11:54 BMI result Body Mass Index 33.5 Tobacco/Smoking Status: Tobacco use Status Tobacco use date assessed 11/11/23 11/11/23 11:58 Patient Tobacco Use Status Never used Tobacco 11/11/23 11:58 e-Cigarette/Vaping Use Never Used 11/11/23 11:58 Thrive Assessment: Date of Thrive Assessment Date Thrive assessed 04/22/23 11/11/23 11:58 Const General: cooperative, comfortable and no acute distress Orientation/consciousness: patient oriented x3 HENMT Head: Yes normocephalic Eyes General: appearance normal, both eyes and all related structures Neck Neck: Yes supple Resp Effort & Inspection: normal respiratory effort, no cough and no stridor Cardio Other: Rhythm: regular rhythm Heart sounds: S1 normal heart sound present and S2 normal heart sound present Skin General skin exam: turgor normal Neuro General: patient oriented x3, tone normal and moves all extremities Extrem Right lower extremity: no edema Left lower extremity: no edema Assessment and Plan Assessment & Plan (1) Pre-op evaluation: Code(s): Z01.818 - Encounter for other preprocedural examination (2) Left anterior fascicular block: Code(s): I44.4 - Left anterior fascicular block (3) Impingement of right shoulder: Code(s): M25.811 - Other specified joint disorders, right shoulder (4) Hypothyroidism: Code(s): E03.9 - Hypothyroidism, unspecified Qualifiers: Hypothyroidism type: unspecified Qualified Code(s): E03.9 - Hypothyroidism, unspecified (5) Asthma, moderate persistent: Code(s): J45.40 - Moderate persistent asthma, uncomplicated Qualifiers: Asthma complication type: uncomplicated Qualified Code(s): J45.40 - Moderate persistent asthma, uncomplicated Plan Patient is 62-year-old gentleman came in today for preop evaluation Patient is going in for right shoulder procedure by Dr. Chan, on 11/20/2023 We did the EKG today which showed no changes from EKG done in 2020, he continued to have left anterior vesicular block Patient was evaluated by Cardiology in 2020, he underwent myocardial perfusion imaging prior to hip surgery in 2020, which was within normal limits. Echocardiogram shows normal structure of the heart. Patient is symptom-free, there is no shortness a breath even though he is asthmatic he is using his inhaler with good control of symptoms There is no chest pain There is no fever chills sore throat nausea vomiting diarrhea abdominal pain New set of lab order is due which I have ordered for him EKG done today imaging included along with his old EKG for your review as well Patient is stable for right shoulder procedure Orders: Orders 2 Complete Blood Count Auto Diff Today E03.9 - Hypothyroidism, unspecified, I44.4 - Left anterior fascicular block, M25.811 - Other specified joint disorders, right shoulder, Z01.818 - Encounter for other preprocedural examination Comprehensive Met. Panel Today E03.9 - Hypothyroidism, unspecified, I44.4 - Left anterior fascicular block, M25.811 - Other specified joint disorders, right shoulder, Z01.818 - Encounter for other preprocedural examination TSH reflex Free T4 Today E03.9 - Hypothyroidism, unspecified, I44.4 - Left anterior fascicular block, M25.811 - Other specified joint disorders, right shoulder, Z01.818 - Encounter for other preprocedural examination Coding Level of Care Code Est Pt Level 5 (30270) Diagnoses Pre-op evaluation Z01.818 Left anterior fascicular block I44.4 Impingement of right shoulder M25.811 Hypothyroidism, unspecified type E03.9 Hypothyroidism type: unspecified Moderate persistent asthma without complication J45.40 Asthma complication type: uncomplicated Time Spent (min) 41 Comment Time spent pre visit planning reviewing chart, with patient, EKG,labs,coordination of care
== END 2023-11-11 12:39 | disposition home or self-care (01) ==
PROVIDERS: PCP Internal Medicine; Visit Provider Internal Medicine
DX: Z01.818 Encounter for other preprocedural examination (principal); I44.4 Left anterior fascicular block; M25.811 Other specified joint disorders, right shoulder; E03.9 Hypothyroidism, unspecified; J45.40 Moderate persistent asthma, uncomplicated
CPT/HCPCS: 99215

== ENCOUNTER 2023-11-11 12:17 | Outpatient (REF) | payer OTHER, SELFPAY ==
[2023-11-11 16:13] LABS: MANUAL DIFF FLAG NO
[2023-11-11 16:25] LABS: Basophils Absolute Auto 0.1 X10*3/uL (0.0-0.2); Basophils Percent Auto 1.1 % (0-2); Eosinophils Absolute Auto 0.1 X10*3/uL (0.0-0.4); Eosinophils Percent Auto 2.1 % (0-4); Hematocrit 46.6 % (42.0-52.0); Hemoglobin 16.8 g/dl (14.0-18.0); Imm Gran Abs Auto 0.05 X10*3/uL (0.00-0.03); Imm Gran Pct Auto 0.8 % (0.0-0.4); Lymphocytes Absolute Auto 1.2 X10*3/uL (1.2-4.9); Lymphocytes Percent Auto 19.6 % (20-40); Mean Corpuscular HGB Conc 36.1 g/dl (31.0-36.0); Mean Corpuscular Hemoglobin 31.8 pg (27.0-33.0); Mean Corpuscular Volume 88.1 fL (80.0-98.0); Mean Platelet Volume 9.6 fL (9.4-12.4); Monocytes Absolute Auto 0.6 X10*3/uL (0.1-1.2); Monocytes Percent Auto 9.3 % (2-11); Neutrophils Absolute Auto 4.1 x10*3/uL (2.0-8.3); Neutrophils Percent Auto 67.1 % (45-73); Platelet Count 240 X10*3/uL (160-400); Red Blood Count 5.29 X10*6/uL (4.60-5.80); White Blood Count 6.2 X10*3/uL (4.8-10.8)
[2023-11-11 17:51] LABS: Alanine Aminotransferase 24 U/L (0-40); Albumin Level 4.6 g/dL (3.5-5.0); Alkaline Phosphatase 55 U/L (39-117); Anion Gap 12 (12-20); Aspartate Amino Transferase 23 U/L (5-37); Bilirubin Total 1.3 mg/dL (0.0-1.0); Blood Urea Nitrogen 16 mg/dL (9-16); Calcium 9.6 mg/dL (8.4-10.2); Carbon Dioxide 25 mmol/L (22-29); Chloride 106 mmol/L (96-108); Estimated Glomerular Filt Rate > 60; Glucose Random 78 mg/dL (60-115); Sodium 139 mmol/L (135-145); Total Protein 7.8 g/dL (6.5-8.0)
== END 2023-11-11 12:18 | disposition home or self-care (01) ==
LOC: HO.HMGCLDS 12:17
PROVIDERS: PCP Internal Medicine; Visit Provider Internal Medicine
DX: Z01.818 Encounter for other preprocedural examination (principal); I44.4 Left anterior fascicular block; M25.811 Other specified joint disorders, right shoulder; E03.9 Hypothyroidism, unspecified
CPT/HCPCS: 36415; 80053; 84443; 85025

== ENCOUNTER 2023-11-20 08:49 | Day surgery (SDC) | payer OTHER, SELFPAY ==
[2023-11-09 10:23] VITALS: BMI 31.7
[2023-11-20] VITALS (9 sets, daily range): BP systolic 105–157; BP diastolic 54–85; PULSE 54–66; RESP 16–20; TEMP 36.3–36.6; O2SAT 93–96; BMI 32.9
--- NOTE | 2023-11-20 09:34 | HO.ANESPROP2 ---
HPI - Anesthesia Eval Consult details Narrative: for right shoulder surgery PMFSH Active Problems Active Problems: All Active Problems Impingement of right shoulder (Acute) Right shoulder pain (Acute) Left shoulder pain (Acute) Allergic contact dermatitis of lower leg (Acute) Shoulder pain, bilateral (Acute) Bee sting reaction (Acute) Asthma, moderate persistent (Acute) Neck pain (Acute) Intermittent asthma (Acute) Alcohol cessation counseling (Acute) Encounter for general adult medical examination with abnormal findings (Acute) Pre-operative cardiovascular examination (Acute) Abnormal EKG (Acute) Left anterior fascicular block (Acute) Chronic GERD (Acute) Hypothyroidism (Acute) Pre-op evaluation (Acute) Past Medical History Medical History Slow to wake up after anesthesia Environmental allergies Seasonal allergies Bilateral shoulder pain GERD (gastroesophageal reflux disease) Hypothyroidism Asthma Family History Family History Father Myocardial infarct Mother Stroke Family history of problems with anesthesia: No Surgical History Surgical History Hx of colonoscopy (~2020) History of thumb surgery (~2020) History of left hip replacement (~2019) History of appendectomy (~2018) Hx of shoulder surgery (~2009) History of ankle surgery History of Problems with Anesthesia: No Social History Social History Household Members: Spouse Housing: House Are you a primary acute care occupational therapist to a significant other at home: No Do you presently have visiting nurse or other home services: No Alcohol intake: current Alcohol intake frequency: a few times a month Patient Tobacco Use Status: Never used Tobacco e-Cigarette/Vaping Use: Never Used Second Hand Smoke Exposure: No Substance Use Type Other:: edibles for sleep at times Have you been hit, kicked, punched, or otherwise hurt by someone within the past year? If so, by whom?: No Are you DNR?: No Advance Directives: No Advance Directives Information Provided: Yes Advance Directives on File: No Recently lost weight without trying: No Nutrition Risks: No Nutritional Risk Poor oral hygiene: No Current occupational status: retired 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 Cognitive needs: No Hearing needs: No Vision needs: Yes Meds Allergies Allergy/AdvReac Type Severity Reaction Status Date / Time No Known Allergies Allergy Verified 11/20/23 09:10 Home Medications ?Medication ?Instructions ?Recorded ?Confirmed ?Last Taken ?Type fluticasone 250 mcg-salmeterol 50 1 inh inhalation BID 10/31/22 11/20/23 Unknown History mcg/dose blistr powdr for inhalation (Advair Diskus) multivitamin 1 tab PO DAILY 11/09/23 11/20/23 Unknown History Exam Height,Weight and Vital Signs: Height 5 ft 9 in Weight 101.151 kg Last Vital Signs Temp 97.9 F 11/20/23 09:20 Pulse 54 11/20/23 09:20 Resp 16 11/20/23 09:20 BP 138/83 11/20/23 09:20 Pulse Ox 95 11/20/23 09:20 O2 Del Method Room Air 11/20/23 09:20 Airway Mallampati Class: III TM Dist: >3cm Neck ROM: Full Heart: rrr Lungs: cta Assessment and Plan Assessment Anesthesia Assessment: Anesthesia Plan Discussed and Chart Reviewed Final Anesthetic Review Family History of Problems with Anesthesia: No History of Problems with Anesthesia: No NPO: Yes ASA Class: III Final Preanesthetic Review: No Changes in Pt Med Stat, Meds/Allgs Chart Reviewed, Consent Obtained/Reviewed and Anes Risks/Benef Reviewed Patient Risk: Intermediate Procedure Risk: Intermediate Anesthetic Plan Anesthetic Plan: GA and Regional Block Disposition: Standard PACU
--- NOTE | 2023-11-20 11:34 | PM.OP ---
Brief Operative Note Date of Service: 11/20/23 Pre-op diagnosis: Right shoulder impingement syndrome, right shoulder glenohumeral joint arthritis, right shoulder adhesive capsulitis Post-op diagnosis: same Procedure: Right shoulder diagnostic arthroscopy with right shoulder arthroscopic acromioplasty, right shoulder arthroscopic glenohumeral joint debridement, right shoulder arthroscopic anterior capsular release, right shoulder manipulation under anesthesia Implants: None Surgeon: Forrest Chan MD Anesthesia: GETA and regional Was an Christmas Tree Grower used for this Procedure?: No Estimated blood loss (mL): 10 Pathology: none sent Condition: stable Disposition: PACU
--- NOTE | 2023-11-20 11:36 | P.OP_ITS ---
Operative Note Operative Note Date of Service: 11/20/23 Narrative: After the patient was identified as Taran Gray and his right shoulder was initialed by myself the patient was brought to the holding area where a right shoulder interscalene regional block was performed by the anesthesiologist in routine fashion. The patient was then brought to the operating room where general anesthesia was induced by the anesthesiologist in routine fashion. The patient was given 2 g of IV Ancef preoperatively for infection prophylaxis. Examination under anesthesia of the patient's right shoulder showed decreased passive range of motion when compared to the left shoulder. The patient's right shoulder had passive forward flexion to 70 degrees compared to 170 degrees, external rotation to 20 degrees compared to 50 degrees, and internal rotation to 30 degrees compared to 40 degrees. The patient was gently positioned in the beach chair position with all bony prominences well padded. The patient's right shoulder region and upper extremity were prepped and draped in sterile fashion. A formal time-out was completed. A #11 scalpel blade was used to make a posterior portal 2 cm inferior and 1 cm medial to the posterolateral corner of the acromion. Blunt trocar technique was used to enter the glenohumeral joint in routine fashion. An anterior portal was made just lateral to the coracoid process after proper positioning was confirmed using a spinal needle. Diagnostic arthroscopy showed diffuse grade 2 and 3 degenerative changes of the glenoid and humeral head articular surfaces. The articular surfaces of the glenoid and humeral head were then made smooth using the arthroscopic shaver. There was no evidence of rotator cuff tearing. There was no evidence of injury to the biceps tendon or its insertion onto the glenoid. There was inflammation of the anterior joint capsule consistent with adhesive capsulitis. The ArthroCare Wand was then used to perform an anterior capsular release between the inferior border of the biceps tendon and the superior border of the subs capularis tendon. The arthroscope was then placed from the posterior portal into the subacromial space. A lateral portal was made 2 fingerbreadths lateral to the anterior lateral corner of the acromion. The ArthroCare Wand was used to ablate soft tissues along the undersurface of the acromion as well as to excise the coracoacromial ligament. There was a sharp spur along the undersurface of the acromion which was removed using the hooded bur. The arthroscope was then placed into the lateral portal and the acromioplasty was completed with the bur in the posterior portal using the posterior aspect of the acromion as a cutting block. The ArthroCare Wand was then brought in through the anterior portal and was used to ablate soft tissues along the acromioclavicular joint and distal clavicle. The posterior and superior ligamentous structures were left intact. There was already 10 mm of space at the acromioclavicular joint so no revision distal clavicle excision was indicated. Any remaining bursal tissue was removed using the arthroscopic shaver. The subacromial space was irrigated and then drained. All arthroscopic instruments were removed. A gentle manipulation under anesthesia was then performed. Full passive range of motion was attained. The 3 portals were closed with 3-0 nylon interrupted suture. The subacromial space was injected with Marcaine. Dry sterile dressing was placed over all incisions. The patient's right upper extremity was placed into a sling. The patient was awoken and extubated in the operating room. The patient was transferred to the recovery room in stable condition.
[2023-11-20] MEDS: cefTRIAXone sodium 1 GM in 0.9 % Sodium Chloride 50 ML IV (12:10)
== END 2023-11-20 13:00 | disposition home or self-care (01) ==
PROVIDERS: PCP Internal Medicine; Visit Provider Orthopaedic Surgery
PROC: (CPT 29805; principal; 2023-11-20 10:40)
DX: M75.41 Impingement syndrome of right shoulder (principal); M75.01 Adhesive capsulitis of right shoulder; M19.011 Primary osteoarthritis, right shoulder; M25.811 Other specified joint disorders, right shoulder; J45.909 Unspecified asthma, uncomplicated; Z79.51 Long term (current) use of inhaled steroids; Z79.899 Other long term (current) drug therapy; Z98.890 Other specified postprocedural states
CPT/HCPCS: 29825; 29822; 29826; J0171; J0665; J0690; J0696; J1100; J2250; J2405; J2704; J2795; J3010

== ENCOUNTER → 2023-11-20 08:49 | Outpatient (BNV) | payer OTHER, SELFPAY | PROVIDERS: PCP Internal Medicine; Visit Provider Orthopaedic Surgery | DX: M75.41 Impingement syndrome of right shoulder (principal); M19.011 Primary osteoarthritis, right shoulder; M75.01 Adhesive capsulitis of right shoulder | CPT/HCPCS: 29823; 29826 ==

== ENCOUNTER 2023-12-03 11:25 | Outpatient (AMB) | payer OTHER, SELFPAY ==
--- NOTE | 2023-12-03 06:51 | MHC.OFFVIS ---
Vital Signs 12/03/23 11:42 Height 5 ft 9 in Weight 223 lb BMI 32.9 Intake Visit Reasons: PO-Rt Shld 11/20/23 DR Intake Note: Taran is a 62 year old male, left hand dominant, who presents today for post op on right shoulder , 11/20/23, Patient reports the pain has been much better but it does hurt on and off when in movement. He is using ibuprofen for the pain with relief. Patient would like to discuss restrictions today. 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 Chan. He states he has improvement in his pain however he does have some soreness and intermittent pain in his shoulder. He takes ibuprofen for the pain with benefits. He has no concern today. [facility] Medical History Slow to wake up after anesthesia Environmental allergies Seasonal allergies Bilateral shoulder pain GERD (gastroesophageal reflux disease) Hypothyroidism Asthma Surgical History Hx of colonoscopy (~2020) History of thumb surgery (~2020) History of left hip replacement (~2019) History of appendectomy (~2018) Hx of shoulder surgery (~2009) History of ankle surgery Family History Father Myocardial infarct Mother Stroke Social History Household Members: Spouse Housing: House Are you a primary care tech to a significant other at home: No Do you presently have visiting nurse or other home services: No 75 years or older and lives alone: No Alcohol intake: current Alcohol intake frequency: a few times a month Patient Tobacco Use Status: Never used Tobacco e-Cigarette/Vaping Use: Never Used Second Hand Smoke Exposure: No Current occupational status: retired 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 Cognitive needs: No Hearing needs: No Vision needs: Yes Review of Systems Const All systems reviewed & are unremarkable except as noted in HPI and below Physical Exam Vital Signs: BMI result Body Mass Index 32.9 Extrem Other: Right shoulder: Incision clean, dry and intact. No erythema or drainage. For wfwlx 110 degrees. NVI. Results Reviewed Results Reviewed: Brief Operative Note Date of Service: 11/20/23 Pre-op diagnosis: Right shoulder impingement syndrome, right shoulder glenohumeral joint arthritis, right shoulder adhesive capsulitis Post-op diagnosis: same Procedure: Right shoulder diagnostic arthroscopy with right shoulder arthroscopic acromioplasty, right shoulder arthroscopic glenohumeral joint debridement, right shoulder arthroscopic anterior capsular release, right shoulder manipulation under anesthesia Implants: None Surgeon: Forrest Chan MD Assessment & Plan Assessment & Plan (1) Impingement of right shoulder: Code(s): M25.811 - Other specified joint disorders, right shoulder Category: Medical Plan Sutures removed today, steri strips applied. I did recommend physical therapy which he would hold off this time. He will work on exercises on his own at home. He will avoid any type of overhead lifting or repetitive motions to prevent injury for the next 4-6 weeks, at which point he will see me back with Dr. Chan, sooner if needed. Patient Instructions: Scribed for Paramjit Rhodes PA-C, by Kris Troncoso medical assistant instructor, on 12/03/2023 at 11:30 AM EST. IParamjit PA-C, have personally reviewed and agree with the information entered by the scribe. Coding Level of Care Code Global (32028) Diagnoses Impingement of right shoulder M25.811
[2023-12-03 11:42] VITALS: BMI 32.9
== END 2023-12-03 12:12 | disposition home or self-care (01) ==
PROVIDERS: PCP Internal Medicine; Visit Provider Physician Assistant
DX: M25.811 Other specified joint disorders, right shoulder (principal)
CPT/HCPCS: 99024

== ENCOUNTER → 2023-12-03 11:25 | Outpatient (BNVA) | payer OTHER, SELFPAY | PROVIDERS: PCP Internal Medicine; Visit Provider Physician Assistant | DX: M25.811 Other specified joint disorders, right shoulder (principal) | CPT/HCPCS: 99212 ==

== ENCOUNTER 2023-12-31 11:29 | Outpatient (AMB) | payer OTHER, SELFPAY ==
[2023-12-31 11:48] VITALS: BMI 32.9
--- NOTE | 2023-12-31 11:48 | A.OFFVIS_ITS ---
Vital Signs 12/31/23 11:48 Height 5 ft 9 in Weight 223 lb BMI 32.9 Intake Visit Reasons: PO-Rt Shld 11/20/23 DR- Intake Note: Taran is a 63 year old male who presents for his post operative appointment s/p his Right shoulder on 11/20/2023. Patient reports he has been sore / achy with certain movements. He is doing home exercises. He denies any fevers or chills. He does take ibuprofen or oxycodone for his discomfort. Allergies No Known Allergies Allergy (Verified 12/31/23 11:55) [facility] Medical History Slow to wake up after anesthesia Environmental allergies Seasonal allergies Bilateral shoulder pain GERD (gastroesophageal reflux disease) Hypothyroidism Asthma Surgical History Hx of colonoscopy (~2020) History of thumb surgery (~2020) History of left hip replacement (~2019) History of appendectomy (~2017) Hx of shoulder surgery (~2009) History of ankle surgery Family History Father Myocardial infarct Mother Stroke Social History Household Members: Spouse Housing: House Are you a primary respiratory care practitioner to a significant other at home: No Do you presently have visiting nurse or other home services: No 75 years or older and lives alone: No Alcohol intake: current Alcohol intake frequency: a few times a month Patient Tobacco Use Status: Never used Tobacco e-Cigarette/Vaping Use: Never Used Second Hand Smoke Exposure: No Current occupational status: retired 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 Cognitive needs: No Hearing needs: No Vision needs: Yes Physical Exam Vital Signs: BMI result Body Mass Index 32.9 Extrem Other: Right shoulder examination shows that the surgical incisions are well healed, no erythema, slightly decreased range of motion when compared to his left shoulder, minimal discomfort with resisted forward flexion Assessment & Plan Assessment & Plan (1) Right shoulder pain: Code(s): M25.511 - Pain in right shoulder Category: Medical Plan Mr. Gray is doing well after undergoing right shoulder arthroscopic surgery on 11/20/2023. He will continue with his home stretching program. The do's and don'ts of lifting were discussed at length with the patient. I did refill his prescription for oxycodone. Will contact me prior to his follow-up appointment in 6 weeks should any questions or concerns arise. Feel free to call me at any time should questions regarding his orthopedic management arise. Medications: New oxycodone Partial Fill upon patient request. 5 mg PO Q8H PRN 30 tabs 0RF pain Coding Level of Care Code Global (82062) Diagnoses Right shoulder pain M25.511
== END 2023-12-31 12:07 | disposition home or self-care (01) ==
PROVIDERS: PCP Internal Medicine; Visit Provider Orthopaedic Surgery
DX: M25.511 Pain in right shoulder (principal)
CPT/HCPCS: 99024

== ENCOUNTER → 2023-12-31 11:29 | Outpatient (BNVA) | payer OTHER, SELFPAY | PROVIDERS: PCP Internal Medicine; Visit Provider Orthopaedic Surgery | DX: M25.511 Pain in right shoulder (principal); Z79.891 Long term (current) use of opiate analgesic | CPT/HCPCS: 99212 ==

== ENCOUNTER 2024-02-24 09:12 | Outpatient (AMB) | payer OTHER, SELFPAY ==
--- NOTE | 2024-02-24 09:15 | A.OFFVIS_ITS ---
Vital Signs 02/24/24 09:16 Height 5 ft 9 in Weight 223 lb BMI 32.9 Intake Visit Reasons: OV-Rt Shld 11/20/23 DR- Intake Note: Taran is a 63 year old male who presents to the office today for a PO-Rt Shld 11/20/23 DR. The patient reports mild intermittent discomfort in his right shoulder. He denies any fevers or chills. He continues with his home stretching program. He does take ibuprofen or Aleve as needed for his discomfort. Also reports intermittent neck pain. He states that his neck pain is tolerable to him at this point. Allergies No Known Allergies Allergy (Verified 02/24/24 09:16) Medication List - Last Reconciled 02/24/24 by Forrest Chan MD albuterol sulfate 90 mcg/actuation (ProAir HFA) 1 inh inhalation QID PRN 30 days fluticasone propion-salmeterol 250-50 mcg/dose (Advair Diskus) 1 inh inhalation BID levothyroxine 175 mcg PO QAM 90 days multivitamin 1 tab PO DAILY omeprazole 20 mg PO DAILY 90 days oxycodone 5 mg PO Q8H PRN PFSH Medical History Slow to wake up after anesthesia Environmental allergies Seasonal allergies Bilateral shoulder pain GERD (gastroesophageal reflux disease) Hypothyroidism Asthma Surgical History Hx of colonoscopy (~2020) History of thumb surgery (~2020) History of left hip replacement (~2019) History of appendectomy (~2017) Hx of shoulder surgery (~2009) History of ankle surgery Family History Father Myocardial infarct Mother Stroke Social History Household Members: Spouse Housing: House Are you a primary career transition specialist to a significant other at home: No Do you presently have visiting nurse or other home services: No 75 years or older and lives alone: No Alcohol intake: current Alcohol intake frequency: a few times a month Patient Tobacco Use Status: Never used Tobacco e-Cigarette/Vaping Use: Never Used Second Hand Smoke Exposure: No Current occupational status: retired 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 Cognitive needs: No Hearing needs: No Vision needs: Yes Physical Exam Vital Signs: BMI result Body Mass Index 32.9 Const Other: Well-nourished well-developed very friendly male awake alert and oriented x3 in no acute distress Extrem Other: Bilateral upper extremity examination shows good capillary refill, no skin lesions noted, normal sensation light touch Right shoulder examination shows almost full range of motion when compared to his left shoulder, 5/5 strength with supraspinatus testing, minimal crepitus with range of motion, no instability Assessment & Plan Assessment & Plan (1) Right shoulder pain: Code(s): M25.511 - Pain in right shoulder Category: Medical Plan Mr. Gray continues to do well after undergoing right shoulder arthroscopic surgery on 11/20/2023. He will continue with his range of motion exercises to prevent stiffness. He does have residual discomfort due to glenohumeral joint arthritis. At this point the patient's symptoms are tolerable to him. We will hold off on a cortisone injection. Will follow up with me on an as-needed basis should his symptoms not plateau at an unacceptable level over the next few months. Feel free to call me at any time should questions regarding his orthopedic management arise. I spent 21 minutes in reviewing the patient's records and imaging studies, seeing the patient and documenting in the medical record. Coding Level of Care Code Est Pt Level 3 (00686) Diagnoses Right shoulder pain M25.511
[2024-02-24 09:16] VITALS: BMI 32.9
== END 2024-02-24 09:41 | disposition home or self-care (01) ==
PROVIDERS: PCP Internal Medicine; Visit Provider Orthopaedic Surgery
DX: M25.511 Pain in right shoulder (principal)
CPT/HCPCS: 99213

== ENCOUNTER → 2024-02-24 09:12 | Outpatient (BNVA) | payer OTHER, SELFPAY | PROVIDERS: PCP Internal Medicine; Visit Provider Orthopaedic Surgery | DX: M25.511 Pain in right shoulder (principal) | CPT/HCPCS: 99212 ==

== ENCOUNTER 2024-04-26 12:38 | Outpatient (AMB) | payer OTHER, SELFPAY ==
--- NOTE | 2024-04-26 12:45 | MHC.PC.OV ---
Vital Signs 04/26/24 12:47 Height 5 ft 9 in Weight 222 lb BMI 32.8 BP 120/90 H Blood Pressure Location Lt brachial Position Sitting Pulse 67 Pulse Source Pulse Oximeter Pulse Oximetry (%) 98 Oxygen Delivery Method Room Air Intake Visit Reasons: annual PE Allergies No Known Allergies Allergy (Verified 04/26/24 12:47) Medication List - Last Reconciled 04/26/24 by Marshall Cheema MD albuterol sulfate 90 mcg/actuation (ProAir HFA) 1 inh inhalation QID PRN 30 days fluticasone propion-salmeterol 250-50 mcg/dose (Advair Diskus) 1 inh inhalation BID levothyroxine 175 mcg PO QAM 90 days multivitamin 1 tab PO DAILY omeprazole 20 mg PO DAILY 90 days Tobacco use date assessed: 11/11/23 Dental Screening Dental Screen Date: 04/22/23 HPI annual PE HPI Details Patient is 63-year-old gentleman came in today for physical examination Colonoscopy is up-to-date patient says that he started having colonoscopies late 40s as he was having rectal bleeds Last 2020 as per patient Hypothyroidism : Patient was levothyroxine 175 mcg , due for labs GERD is stable with omeprazole 20 mg. BMI is elevated at 32.8, weight loss is recommended Overall he is feeling good and is very active offer no new complaints Asthma stable with Advair disc Follow-up 6 months physical exam 1 year labs are needed before every visit [facility] Medical History Slow to wake up after anesthesia Environmental allergies Seasonal allergies Bilateral shoulder pain GERD (gastroesophageal reflux disease) Hypothyroidism Asthma Surgical History Hx of colonoscopy (~2020) History of thumb surgery (~2020) History of left hip replacement (~2019) History of appendectomy (~2017) Hx of shoulder surgery (~2009) History of ankle surgery Family History Father Myocardial infarct Mother Stroke Social History Household Members: Spouse Housing: House Are you a primary child care education coordinator to a significant other at home: No Do you presently have visiting nurse or other home services: No 75 years or older and lives alone: No Alcohol intake: current Alcohol intake frequency: a few times a month Patient Tobacco Use Status: Never used Tobacco e-Cigarette/Vaping Use: Never Used Second Hand Smoke Exposure: No Current occupational status: retired 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 1. Little interest or pleasure in doing things: not at all 2. Feeling down, depressed, or hopeless: not at all 3. Trouble falling or staying asleep, or sleeping too much: not at all 4. Feeling tired or having little energy: not at all 5. Poor appetite or overeating: not at all 6. Feeling bad about yourself - or that you are a failure or have let yourself or your family down: not at all 7. Trouble concentrating on things, such as reading the newspaper or watching television: not at all 8. Moving or speaking so slowly that other people could have noticed. Or the opposite - being so fidgety or restless that you have been moving around a lot more than usual: not at all 9. Thoughts that you would be better off or of hurting yourself in some way: not at all Total score: 0 Depression Screening Interpretation: Negative Depression Screening Done: Yes 59169 - PHQ-9 Billing: Yes Source: Developed by Drs. Gordo Goodson, Erica Reed, Roque Garner and colleagues, with an educational julio from [employer]. Thrive Questionnaire Date Thrive assessed: 04/22/23 I am a: Patient What is your living situation today?: I have a steady place to live Within the past 12 months, did the food you bought not last and you didn't have the money to get more?: Never true Within the past 12 months, did you worry whether your food would run out before you got money to buy more?: Never true Do you have trouble paying for medicines?: No Do you have trouble getting transportation to medical appointments?: No Do you have trouble paying your heating and electricity bill?: No Do you have trouble taking care of your child, family member or friend?: No Do you have trouble with day-to-day activities such as bathing, preparing meals, shopping, managing finances, etc.?: No Are you interested in more education?: No Please select the resources that you would like help with: None Currently or been in a relationship where the following occur: No concerns reported THRIVE Score: 0 AUDIT C Alcohol Use Questionnaire (AUDIT-C) 1. How often do you have a drink containing alcohol?: 2-4 times a month 2. How many drinks containing alcohol do you have on a typical day when you are drinking?: 1 or 2 3. How often do you have six or more drinks on one occasion?: Never Total Score: 2 WILMER-7 AMB Questionnaire WILMER-7 Date WILMER - 7 assessed: 04/22/23 Feeling nervous, anxious, or on edge: 0 = Not at all Not being able to stop or control worryin = Not at all Worrying too much about different things: 0 = Not at all Trouble relaxin = Not at all Being so restless that it is hard to sit still: 0 = Not at all Becoming easily annoyed or irritable: 0 = Not at all Feeling afraid as if something awful might happen: 0 = Not at all Total WILMER-7 score (0-4 normal; 5-9 mild; 10-14 moderate; 15-21 severe): 0 Source: Developed by Drs. Gordo Goodson, Erica Reed, Roque Garner and colleagues, with an educational julio from [employer]. Review of Systems Const Denies chills, Denies fever(s) and Denies headache(s) Eyes Denies blurry vision ENT Denies headache(s), Denies nasal discharge, Denies nasal obstruction, Denies odynophagia and Denies sinus pain Card Denies chest pain at rest and Denies chest pain with activity Resp Denies cough and Denies hemoptysis GI Denies diarrhea, Denies odynophagia, Denies vomiting and Denies hematemesis Reports as per HPI Musc Denies abnormal gait Skin/Breast Reports as per HPI Neuro Denies Neuro-related abnormal movements, Denies Abnormal speech present, Denies abnormal gait, Denies headache(s) and Denies Sensory deficit (Neuro) Psych Denies mood swings and Denies paranoia Endo Reports as per HPI Lukasz/Lymph Reports as per HPI Aller/Immun Reports as per HPI Physical exam (Primary Care) Vital Signs: Last Vital Signs Pulse 67 04/26/24 12:47 BP 120/90 H 04/26/24 12:47 Pulse Ox 98 04/26/24 12:47 Oxygen Delivery Method Room Air 04/26/24 12:47 BMI result Body Mass Index 32.8 Tobacco/Smoking Status: Tobacco use Status Tobacco use date assessed 11/11/23 04/26/24 12:47 Patient Tobacco Use Status Never used Tobacco 04/26/24 12:47 e-Cigarette/Vaping Use Never Used 04/26/24 12:47 PHQ-9: PHQ-9 Score PHQ-9: Total score 0 04/26/24 12:47 Depression Screening Interpretation: Negative Thrive Assessment: Date of Thrive Assessment Date Thrive assessed 04/22/23 04/26/24 12:47 Currently or been in a relationship where the following occur: No concerns reported Const General: cooperative, comfortable and no acute distress Orientation/consciousness: patient oriented x3 HENMT Head: Yes normocephalic and Yes atraumatic Eyes General: appearance normal, both eyes and all related structures Pupils: Equal, round and reactive pupils present EOM: EOMs intact bilaterally Neck Neck: Yes supple and No lymphadenopathy Thyroid: Thyroid normal Lymphatic: no lymphadenopathy noted Resp Effort & Inspection: normal respiratory effort and able to speak in complete sentences Auscultation: clear to auscultation bilaterally Cardio Heart sounds: S1 normal heart sound present and S2 normal heart sound present GI Palpation (GI): Soft to palpation and nontender Auscultation: normal bowel sounds General: Yes no CVA tenderness Back/Spine/Pelvis Back: no CVA tenderness Skin General skin exam: elasticity normal and turgor normal Neuro General: patient oriented x3 and gait normal Cranial nerves: Yes Equal, round and reactive pupils present Speech: No Abnormal speech present Sensory Exam: No Sensory deficit (Neuro) Coordination: tandem gait normal and Romberg test negative Extrem General: Yes normal exam except as noted and No edema Assessment and Plan Assessment & Plan (1) Encounter for general adult medical examination without abnormal findings: Code(s): Z00.00 - Encounter for general adult medical examination without abnormal findings (2) Hypothyroidism: Code(s): E03.9 - Hypothyroidism, unspecified Qualifiers: Hypothyroidism type: unspecified Qualified Code(s): E03.9 - Hypothyroidism, unspecified (3) Chronic GERD: Code(s): K21.9 - Gastro-esophageal reflux disease without esophagitis (4) Asthma, moderate persistent: Code(s): J45.40 - Moderate persistent asthma, uncomplicated Qualifiers: Asthma complication type: uncomplicated Qualified Code(s): J45.40 - Moderate persistent asthma, uncomplicated Plan Patient is 63-year-old gentleman came in today for physical examination Colonoscopy is up-to-date patient says that he started having colonoscopies late 40s as he was having rectal bleeds Last 2020 as per patient Hypothyroidism : Patient was levothyroxine 175 mcg , due for labs GERD is stable with omeprazole 20 mg. BMI is elevated at 32.8, weight loss is recommended Overall he is feeling good and is very active offer no new complaints Asthma stable with Advair disc Follow-up 6 months physical exam 1 year labs are needed before every visit Orders: Orders Complete Blood Count Auto Diff Today E03.9 - Hypothyroidism, unspecified, J45.40 - Moderate persistent asthma, uncomplicated, K21.9 - Gastro-esophageal reflux disease without esophagitis, Z00.01 - Encounter for general adult medical examination with abnormal findings Comprehensive [place]. Panel Fast Today E03.9 - Hypothyroidism, unspecified, J45.40 - Moderate persistent asthma, uncomplicated, K21.9 - Gastro-esophageal reflux disease without esophagitis, Z00.01 - Encounter for general adult medical examination with abnormal findings TSH reflex Free T4 Today E03.9 - Hypothyroidism, unspecified, J45.40 - Moderate persistent asthma, uncomplicated, K21.9 - Gastro-esophageal reflux disease without esophagitis, Z00.01 - Encounter for general adult medical examination with abnormal findings Comprehensive Met. Panel 6 Months E03.9 - Hypothyroidism, unspecified, J45.40 - Moderate persistent asthma, uncomplicated, K21.9 - Gastro-esophageal reflux disease without esophagitis TSH reflex Free T4 6 Months E03.9 - Hypothyroidism, unspecified, J45.40 - Moderate persistent asthma, uncomplicated, K21.9 - Gastro-esophageal reflux disease without esophagitis Lipid Panel Today E03.9 - Hypothyroidism, unspecified, J45.40 - Moderate persistent asthma, uncomplicated, K21.9 - Gastro-esophageal reflux disease without esophagitis, Z00.01 - Encounter for general adult medical examination with abnormal findings Complete Blood Count Auto Diff 6 Months E03.9 - Hypothyroidism, unspecified, J45.40 - Moderate persistent asthma, uncomplicated, K21.9 - Gastro-esophageal reflux disease without esophagitis Coding Level of Care Code Est Pt Prev Care 40-64y(06285) Diagnoses Encounter for general adult medical examination without abnormal findings Z00.00 Hypothyroidism, unspecified type E03.9 Hypothyroidism type: unspecified Chronic GERD K21.9 Moderate persistent asthma without complication J45.40 Asthma complication type: uncomplicated
[2024-04-26 12:47] VITALS: BP 120/90; PULSE 67; O2SAT 98; BMI 32.8
== END 2024-04-26 13:06 | disposition home or self-care (01) ==
PROVIDERS: PCP Internal Medicine; Visit Provider Internal Medicine
DX: Z00.00 Encounter for general adult medical examination without abnormal findings (principal); E03.9 Hypothyroidism, unspecified; K21.9 Gastro-esophageal reflux disease without esophagitis; J45.40 Moderate persistent asthma, uncomplicated

== ENCOUNTER → 2024-04-26 12:38 | Outpatient (BNVA) | payer OTHER, SELFPAY | PROVIDERS: PCP Internal Medicine; Visit Provider Internal Medicine ==

== ENCOUNTER 2024-05-05 09:59 | Outpatient (REF) | payer OTHER, SELFPAY ==
[2024-05-05 13:04] LABS: MANUAL DIFF FLAG NO
[2024-05-05 13:10] LABS: Basophils Absolute Auto 0.1 X10*3/uL (0.0-0.2); Basophils Percent Auto 1.2 % (0-2); Eosinophils Absolute Auto 0.2 X10*3/uL (0.0-0.4); Eosinophils Percent Auto 4.5 % (0-4); Hematocrit 44.7 % (42.0-52.0); Hemoglobin 15.5 g/dl (14.0-18.0); Imm Gran Abs Auto 0.02 X10*3/uL (0.00-0.03); Imm Gran Pct Auto 0.4 % (0.0-0.4); Lymphocytes Absolute Auto 1.1 X10*3/uL (1.2-4.9); Lymphocytes Percent Auto 21.9 % (20-40); Mean Corpuscular HGB Conc 34.7 g/dl (31.0-36.0); Mean Corpuscular Hemoglobin 31.1 pg (27.0-33.0); Mean Corpuscular Volume 89.8 fL (80.0-98.0); Mean Platelet Volume 9.3 fL (9.4-12.4); Monocytes Absolute Auto 0.5 X10*3/uL (0.1-1.2); Monocytes Percent Auto 9.7 % (2-11); Neutrophils Absolute Auto 3.1 x10*3/uL (2.0-8.3); Neutrophils Percent Auto 62.3 % (45-73); Platelet Count 216 X10*3/uL (160-400); Red Blood Count 4.98 X10*6/uL (4.60-5.80); White Blood Count 4.9 X10*3/uL (4.8-10.8)
[2024-05-05 13:32] LABS: Alanine Aminotransferase 22 U/L (0-40); Albumin Level 4.4 g/dL (3.5-5.0); Alkaline Phosphatase 48 U/L (39-117); Anion Gap 10 (12-20); Aspartate Amino Transferase 22 U/L (5-37); Bilirubin Total 1.2 mg/dL (0.0-1.0); Blood Urea Nitrogen 14 mg/dL (9-16); Calcium 9.6 mg/dL (8.4-10.2); Carbon Dioxide 27 mmol/L (22-29); Chloride 108 mmol/L (96-108); Cholesterol 183 mg/dL (<200); Estimated Glomerular Filt Rate > 60; Glucose Fasting 89 mg/dL (60-99); HDL Cholesterol 42 mg/dL (>40); LDL Cholesterol Calculated 102 mg/dL (<100); Potassium 4.1 mmol/L (3.3-5.1); Sodium 141 mmol/L (135-145); Total Protein 7.2 g/dL (6.5-8.0); Triglycerides 199 mg/dL (<150)
[2024-05-05 13:49] LABS: TSH reflex Free T4 5.23 uIU/mL (0.32-4.0)
[2024-05-05 14:25] LABS: Free T4 (Free Thyroxine) 1.07 ng/dL (0.71-1.85)
== END 2024-05-05 10:00 | disposition home or self-care (01) ==
LOC: HO.HMGCLDS 09:59
PROVIDERS: PCP Internal Medicine; Visit Provider Internal Medicine
DX: Z00.01 Encounter for general adult medical examination with abnormal findings (principal); E03.9 Hypothyroidism, unspecified; K21.9 Gastro-esophageal reflux disease without esophagitis; J45.40 Moderate persistent asthma, uncomplicated
CPT/HCPCS: 36415; 80053; 80061; 84439; 84443; 85025

== ENCOUNTER 2024-06-14 11:29 | Outpatient (AMB) | payer OTHER, SELFPAY ==
--- NOTE | 2024-06-14 11:39 | MHC.OFFVIS ---
Intake Visit Reasons: OV-Rt Shld 11/20/23 DR-Follow up Intake Note: Taran is a 63 year old male who presents with complaints of mild intermittent discomfort in his right shoulder after undergoing right shoulder arthroscopic surgery on 11/20/2023. Continues with his home exercise program. Denies any weakness in his shoulder. He does not take any medicines for his discomfort. He has been able to bowl damian with minimal discomfort. Allergies No Known Allergies Allergy (Verified 06/14/24 11:44) Medication List - Last Reconciled 06/15/24 by Forrest Chan MD albuterol sulfate 90 mcg/actuation 1 inh inhalation QID PRN 30 days fluticasone propion-salmeterol 250-50 mcg/dose (Advair Diskus) 1 inh inhalation BID levothyroxine 175 mcg PO QAM 90 days multivitamin 1 tab PO DAILY omeprazole 20 mg PO DAILY 90 days PFS Medical History Slow to wake up after anesthesia Environmental allergies Seasonal allergies Bilateral shoulder pain GERD (gastroesophageal reflux disease) Hypothyroidism Asthma Surgical History Hx of colonoscopy (~2020) History of thumb surgery (~2020) History of left hip replacement (~2019) History of appendectomy (~2017) Hx of shoulder surgery (~2009) History of ankle surgery Family History Father Myocardial infarct Mother Stroke Social History Household Members: Spouse Housing: House Are you a primary foster care case manager to a significant other at home: No Do you presently have visiting nurse or other home services: No 75 years or older and lives alone: No Alcohol intake: current Alcohol intake frequency: a few times a month Patient Tobacco Use Status: Never used Tobacco e-Cigarette/Vaping Use: Never Used Second Hand Smoke Exposure: No Current occupational status: retired 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 Cognitive needs: No Hearing needs: No Vision needs: Yes Physical Exam Const Other: Well-nourished well-developed very friendly male awake alert and oriented x3 in no acute distress Extrem Other: Bilateral upper extremity examination shows good capillary refill, no skin lesions noted, normal sensation light touch Right shoulder examination shows that the surgical incisions are well healed, no erythema, full range of motion when compared to his left shoulder, minimal discomfort with range of motion, 5/5 strength with supraspinatus testing, no instability Assessment & Plan Assessment & Plan (1) Right shoulder pain: Code(s): M25.511 - Pain in right shoulder Category: Medical Plan Mr. Gray continues to do well after undergoing right shoulder arthroscopic surgery on 11/20/2023. He will continue with his home exercise program. The do's and don'ts of lifting were discussed at length with the patient. He will follow up with me on an as-needed basis should his symptoms worsen in any way. Feel free to call me at any time should questions regarding his orthopedic management arise. I spent 21 minutes in reviewing the patient's records and imaging studies, seeing the patient and documenting in the medical record. Coding Level of Care Code Est Pt Level 3 (98319) Complex EM visit Add On G2211 Diagnoses Right shoulder pain M25.511
== END 2024-06-14 11:51 | disposition home or self-care (01) ==
PROVIDERS: PCP Internal Medicine; Visit Provider Orthopaedic Surgery
DX: M25.511 Pain in right shoulder (principal)
CPT/HCPCS: 99213

== ENCOUNTER → 2024-06-14 11:29 | Outpatient (BNVA) | payer OTHER, SELFPAY | PROVIDERS: PCP Internal Medicine; Visit Provider Orthopaedic Surgery | DX: M25.511 Pain in right shoulder (principal) | CPT/HCPCS: 99212 ==

== ENCOUNTER 2024-12-30 08:16 | Outpatient (AMB) | payer OTHER, SELFPAY ==
--- OUTSIDE RECORDS SUMMARY | 2024-12-30 08:18 | XMS_ITS | Encounter Summary ---
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 This section includes the names of all active insurance providers for the patient. Insurance Provider Type of Coverage Plan Name Start of Policy Coverage End of Policy Coverage Group Number Member ID Insurance Provider's Telephone Number Policy Zamora's Name Patient's Relationship to Policy Zamora Selected Encounter This section includes the information on record at [facility] for the Encounter. Date/Time Encounter Type Encounter Description Reason Provider Source December 23, 2024 01:00 PM OFFICE O/P EST MOD 30 MIN PRIMARY CARE/MEDICINE ICD-10-CM K21.9 Gastro-esophageal reflux disease without esophagitis ROBERT LEOS Encounter Template Text not used by [facility] Assessments - Encounter Diagnoses This section includes the primary and secondary diagnoses documented for the Encounter. Date/Time Primary/Secondary Diagnosis Diagnosis Name Provider Source December 27, 2024 08:14 AM PRIMARY Gastro-esophageal reflux disease without esophagitis LENA LEOS [place]EV[place] December 27, 2024 08:14 AM SECONDARY Elevated blood-pressure reading, w/o diagnosis of htn LENA LEOS December 27, 2024 08:14 AM SECONDARY Hypothyroidism, unspecified LENA LEOS [place] December 27, 2024 08:14 AM SECONDARY Other asthma LENA LEOS [place] Plan of Treatment: Future Appointments (+ 6 months) and Future Tests (+/- 45 days) The Plan of Treatment section includes future care activities for the patient from all [facility] treatmentfacilities. This section includes future appointments and future orders which are active, pending or scheduled. Active, Pending, and Scheduled Orders This section includes a listing of several types of active, pending, and scheduled orders, including clinic medications orders, diagnostic test orders, procedure orders and consult orders; where the start date of the order is 45 days before the date of the Encounter or 45 days after the date of theEncounter. The data comes from all [facility] treatment facilities. Test Date/Time Test Type Test Details Facility Name December 23, 2024 01:22 PM Consult Order HOME TELE [facility]ALT ENROLLMENT OUTPT Cons [facility] Jan 27, 2025 12:00 AM Laboratory - Chemi stry Order TSH BLOOD (SST-SERUM) [facility] Lab Results: +/- 30 days of the encounter This section includes the Chemistry and Hematology Lab Results on record with [facility] for the patient. Radiology Reports and Pathology Reports are provided separately, in subsequent sections. Lab Results This section contains the Chemistry/Hematology Results that were resulted 30 days before or 30 daysafter the date of the Encounter. Date/Time Source Result Type Result - Unit Interpretation Reference Range Specimen Type Comment December 23, 2024 01:44 PM [facility] BASIC METABOLIC PANEL (fasting) SERUM Specimen Type: SERUM No comment entered. Ordering Provider: LENA LEOS Report Released Date/Time: December 08, 2024 02:43 PM Reporting Lab: [address] [address] Performing Lab: [address] [address] UREA NITROGEN 17 mg/dL 8-26 GLUCOSE 75 mg/dL 65-100 SODIUM 135 mmol/L L 136-145 POTASSIUM 3.8 mmol/L 3.5-5.1 CHLORIDE 102 mmol/L 98-107 CO2 22 meq/L L 23-31 CALCIUM 9.4 mg/dL 8.8-10 CREATININE, Serum 0.97 mg/dL 0.72-1.25 eGFR(CKD-EPI 2020) 88 mL/min >60 December 23, 2024 01:44 PM [facility] LIPID PANEL FASTING SERUM Specimen Ty pe: SERUM No comment entered. Ordering Provider: LENA LEOS Report Released Date/Time: December 08, 2024 02:43 PM Reporting Lab: [address] [address] Performing Lab: [address] [address] CHOLESTEROL 167 mg/dL TRIGLYCERIDE 162 mg/dL H 0-150 LDL calculated 95 mg/dL 0-129 CHOL/HDL 4.2 HDL CHOLESTEROL 40 mg/dL >40 December 23, 2024 01:44 PM [facility] LIVER FUNCTION SERUM Specimen Type: SERUM No comment entered. Ordering Provider: LENA LEOS Report Released Date/Time: December 08, 2024 02:43 PM Reporting Lab: [address] [address] Performing Lab: [address] [address] PROTEIN,TOTAL 7.2 g/dL 6.4-8.3 ALBUMIN 4.8 g/dL H 3.2-4.6 ALKALINE PHOSPHATASE 46 U/L 40-150 AST 28 U/L 5-34 ALT 30 U/L 0-55 BILIRUBIN, TOTAL 1.5 mg/dL H 0.2-1.2 BILIRUBIN, DIRECT 0.3 mg/dL 0-0.5 December 23, 2024 01:44 PM [facility] CBC AND DIFF (AUTO) BLOOD Specimen Ty pe: BLOOD No comment entered. Ordering Provider: LENA LEOS Report Released Date/Time: December 08, 2024 02:43 PM Reporting Lab: [address] [address] Performing Lab: [address] [address] WBC 5.74 10*3/uL 4.50-11.00 RBC 5.15 10*6/uL 4.23-5.66 HGB 15.8 g/dL 12.8-17 HCT 44.2 39.2-50.4 MCV 85.8 fL 82-99 MCHC 35.7 g/dL H 30.8-35.1 PLT 230 10*3/uL 140-360 MPV 9.2 fL 9.2-12.4 RDW-CV 12.2 12.0-16.0 MONO, ABS 0.55 10*3/uL 0.30-1.10 MCH 30.7 pg 26.2-32.6 NEUT % 63.7 43.7-75.8 LYMPH % 22.0 14.0-42.3 MONO % 9.6 5.1-13.7 EOS % 2.8 0.4-6.8 BASO % 1.4 0.1-2.0 NEUT, ABS 3.66 10*3/uL 2.20-7.60 LYMPH, ABS 1.26 10*3/uL 1.00-3.20 EOS, ABS 0.16 10*3/uL 0.03-0.44 BASO, ABS 0.08 10*3/uL 0.01-0.13 IMMATURE GRAN % 0.5 0.0-0.7 IMMATURE GRAN, ABS 0.03 10*3/uL 0.00-0.0 6 NRBC % 0.0 0.0-0.0 NRBC, ABS 0.00 10*3/uL 0.00-0.00 December 23, 2024 01:44 PM [facility] HEMOGLOBIN A1C PANEL BLOOD Specimen T ype: BLOOD Comment: Values obtained from A1C measurements can vary. For atypical A1C assays, a reported value of 7.0 could actually be between 6.72 and 7.28 if measured by a reference method. A reported value of 9.0 could actually be between 8.73 and 9.27. Ref: http://www.ngsp.org/CAPdata.asp Ordering Provider: LENA LEOS Report Released Date/Time: December 08, 2024 02:43 PM Reporting Lab: [address] [address] Performing Lab: [address] [place] [address] HEMOGLOBIN A1C 5.0 4.0-5.6 December 23, 2024 01:44 PM [facility] TSH SERUM Sp ecimen Type: SERUM No comment entered. Ordering Provider: LENA LEOS Report Released Date/Time: December 08, 2024 02:43 PM Reporting Lab: [facility] [address] [address] Performing Lab: [facility] [address] [address] TSH 9.26 u[IU]/mL H 0.35-4.94 Vital Signs: All taken on the encounter date This section contains inpatient and outpatient Vital Signs collected on the date of the Encounter. Date/Time Temperature Pulse Blood Pressure Respiratory Rate SP02 Pain Height Weight Body Mass Index Source December 23, 2024 01:16 PM 134/82 [place] December 23, 2024 01:13 PM 96.1 54 118/84 20 97 0 227.8 34 [facility] [place] Social History: Smoking Status (Most current) and Tobacco Use (All prior to encounter date) This section includes the most current, and the historical, smoking and tobacco- related health factors from the [place] facility where the Encounter took place. Current Smoking Status This section includes the most current smoking, or tobacco-related health factor, from the [facility] facility where the Encounter took place. Date/Time Current Smoking Status Comment Facil ity December 23, 2023 01:00 PM [facility]-TOBACCO NEVER USED [facility] Tobacco Use History This section includes a history of the smoking, or tobacco-related health factors, that were collected on or before the date of the Encounter. The data comes from the [facility] facility where the Encounter took place. Date/Time Smoking Status/Tobacco Use Comment F acility December 22, 2019 01:41 PM [facility]-TOBACCO NEVER USED [facility] Encounter Notes: All associated encounter notes This section contains the clinical notes associated to the Encounter. Date/Time Encounter Note(s) Provider Source December 23, 2024 01:17 PM PREVENTIVE MEDICIN E NURSING NOTE: LOCAL TITLE: CLINICAL REMINDERS/NURSING STANDARD TITLE: PREVENTIVE MEDICINE NURSING NOTE DATE OF NOTE: DECEMBER 23, 2024@13:17 ENTRY DATE: DECEMBER 23, 2024@13:17:35 AUTHOR: KAREN,LUCIO EXP COSIGNER: URGENCY: STATUS: COMPLETED Advance Directive Screen MH AD: Patient does not have a completed advance directive on file at any facility, [facility] or outside. S/he is not interested in completing one at this time. The patient received education about Advance Directives and written notification of his/her rights. Suicide Screen: C-SSRS Screening [place] Suicide Severity Rating Scale (C-SSRS) screener 1. Over the past month, have you wished you were or wished you could go to sleep and not wake up? No 2. Over the past month, have you had any actual thoughts of killing yourself? No 3. Over the past month, have you been thinking about how you might do this? Response not required due to responses to other questions. 4. Over the past month, have you had these thoughts and had some intention of acting on them? Response not required due to responses to other questions. 5. Over the past month, have you started to work out or worked out the details of how to kill yourself? Response not required due to responses to other questions. 6. If yes, at any time in the past month did you intend to carry out this plan? Response not required due to responses to other questions. 7. In your lifetime, have you ever done anything, started to do anything, or prepared to do anything to end your life (for example, collected pills, obtained a gun, gave away valuables, went to the roof but didn't jump)? No 8. If YES, was this within the past 3 months? Response not required due to responses to other questions. Toxic Exposure screening was discussed with during providers visit. Chief Resource Officer provided Toxic Exposure screening handout to the . BMI>30/>24.99 High Risk: Patient declines to discuss weight management. Patient declined weight discussion. Discussed revisiting at a future visit. Homelessness/Food Insecurity Screen: In the past 2 months, have you been living in stable housing that you own, rent, or stay in as part of a household? Yes - Living in stable housing. Are you worried or concerned that in the next 2 months you may NOT have stable housing that you own, rent, or stay in as part of a household? No - Not worried about housing near future [facility] [place] reports the following: Within the past 12 months, you worried whether your food would run out before you got money to buy more. Never true Within the past 12 months, the food you bought just didn't last and you didn't have money to get more. Never true Follow Up Colonoscopy: Colonoscopy is due based on information available to this reminder. A colonoscopy is currently scheduled or in process of being scheduled. Depression Screening: Perform PHQ-2 A PHQ-2 screen was performed. The score was 0 which is a negative screen for depression. Over the past two weeks, how often have you been bothered by the following problems? 1. Little interest or pleasure in doing things Not at all 2. Feeling down, depressed, or hopeless Not at all Hepatitis C Testing: Patient declines HCV lab test. Pneumococcal Conjugate Vaccine (PCV15/PCV20/PCV21): Refuses PCV vaccine Immunization: PNEUMOCOCCAL CONJUGATE, UNSPECIFIED FORMULATION Refusal Reason: PATIENT DECISION Patient refuses all immunization(s) in the PneumoPCV group Date Documented: 12/23/24 13:19 PTSD Screening: PC-PTSD-5 A PTSD screening test (PC-PTSD-5) was negative (score=0). IN THE PAST MONTH, have you ever had any experience that was so frightening, horrible or traumatic. For example: A serious accident or fire a physical or sexual assault or abuse An earthquake or flood A war Seeing someone be killed or seriously injured Having a loved one through homicide or suicide 1. Have you ever experienced this kind of event? NO 2. Had nightmares about the event(s) or thought about the event(s) when you did not want to? Response not required due to responses to other questions. 3. Tried hard not to think about the event(s) or went out of your way to avoid situations that reminded you of the event(s)? Response not required due to responses to other questions. 4. Been constantly on guard, watchful, or easily startled? Response not required due to responses to other questions. 5. [place] numb or detached from people, activities, or your surroundings? Response not required due to responses to other questions. 6. [place] guilty or unable to stop blaming yourself or others for the event(s) or any problems the event(s) may have caused? Response not required due to responses to other questions. Influenza Immunization: No influenza vaccination was received during the recent influenza season. Alcohol Use Screen (AUDIT-C): Alcohol Screen: SCREEN FOR ALCOHOL (AUDIT-C) An alcohol screening test (AUDIT-C) was negative (score=0). 1. How often did you have a drink containing alcohol in the past year? Consider a drink to be a 12 ounce can or bottle of regular beer, 8 ounces of malt liquor, a 5 ounce glass of table wine, or a 1.5 ounce shot of liquor (like scotch, gin, or vodka). Never 2. How many drinks containing alcohol did you have on a typical day when you were drinking in the past year? Response not required due to responses to other questions. 3. How often did you have six or more drinks on one occasion in the past year? Response not required due to responses to other questions. COVID-19 Immunization: Refused Moderna Monovalent COVID-19 vaccine Immunization: COVID-19 (MODERNA), MRNA, LNP-S, PF, 50 MCG/0.5 ML (AGES 12+ YEARS) Refusal Reason: PATIENT DECISION Patient refuses all immunization(s) in the COVID-19 group Date Documented: 12/23/24 13:20 Herpes Zoster (Shingles) Vaccine: The patient declines to receive the recommended dose of zoster (shingles) vaccine. Immunization: ZOSTER RECOMBINANT Refusal Reason: PATIENT DECISION Patient refuses all immunization(s) in the ZOSTER group Date Documented: 12/23/24 13:20 RSV Immunization: Respiratory Syncytial Virus (RSV) Vaccine: Refused GlaxOrca DigitalKline (RSV vaccine, adjuvanted, Arexvy). Immunization: RSV, RECOMBINANT, PROTEIN SUBUNIT RSVPREF3, ADJUVANT RECONSTITUTED, 0.5 ML, PF Refusal Reason: PATIENT DECISION Patient refuses all immunization(s) in the RSV group Date Documented: 12/23/24 13:20 RHS Screen: RHS Screen Session Format: Face to Face Environmental Check Upon inquiry, the individual reports that the environment is safe to proceed. Informed Consent to Screen and Document The individual consents to proceed with screening. The individual consents to documentation of responses. PRIMARY SCREEN: In the past 12 months, how often did a current or former intimate partner (e.g., boyfriend, girlfriend, , , sexual partner): 1. Scream or curse at you Never 2. Insult or talk down to you Never 3. Threaten you with harm Never 4. Physically hurt you Never 5. Force or pressure you to have sexual contact against your will, or when you were unable to say no Never ?? The HITS tool (items 1-4 above) is [place] copyright protected by Dean Hagen MD, and the user has full rights to use it throughout the [place] system. PRIMARY SCREEN RESULT: The Primary Screen is NEGATIVE. The individual answered never to all forms of IPV above (i.e., answered never to all 5 items) The individual accepts education and/or resources: No EDUCATION: The individual indicated readiness to learn. Education offered during this session as noted above. The individual indicated understanding by asking relevant questions and making appropriate comments. No barriers to learning were observed or identified. /boogie/ LUCIO JONES LPN LPN Signed: 12/23/2024 13:21 LUCIO JONES December 23, 2024 09:06 AM PRIMARY CARE NURSE PRACTITIONER OUTPATIENT NOTE: LOCAL TITLE: NURSE PRACTITIONER OUTPATIENT NOTE STANDARD TITLE: PRIMARY CARE NURSE PRACTITIONER OUTPATIENT NOTE DATE OF NOTE: DECEMBER 23, 2024@09:06 ENTRY DATE: DECEMBER 23, 2024@09:06:21 AUTHOR: LENA LEOS COSIGNER: URGENCY: STATUS: COMPLETED CC Presents today for routine follow up HPI This is a 64 y/o male with history of Active problems - Computerized Problem List is the source for the followin. Non-[facility] PCP-Dr. Cheema 2. History of appendectomy 2016 3. Hypothyroidism 4. Asthma 5. Gastroesophageal reflux disease Denies any recent fever, chills, cough, chest pain, sob, dizziness. No recent UC visits or hospitalizations All chornic conditions managed by PCP. Has f/u nonVA PCP Deni for thyroid mgmt Due for c-scope, scheduling nonVA-- Dr. Blanton. GERD -ran out of omeprazole, noted sx -well controlled when on meds Asthma -uses Albuterol and advair -noted tightness while in [place]-relates to humidity; sx improved with albuterol; felt like his typical asthma; never any chest pain Hypothyroid -levothyroxine managed nonVA PCP Will complete labs today. Vet with what seems to be labile BP. Today BP 134/82 on manual. Agrees to Home Telehealth. Reinforced diet and exercise. ALLERGIES Data on this list may not be complete. Please check JLV. FACILITY ALLERGY/ADR -------- No Remote Allergy/ADR Data available for this patient [facility] No Known Allergies MEDICATIONS: Active and Recently Outpatient Medications (excluding Supplies): Active Non-VA Medications Status 1) Non-VA ALBUTEROL 90MCG (CFC-F) 200D ORAL INHL 2 PUFFS BY ACTIVE MOUTH EVERY 6 HOURS NEEDED 2) Non-VA FLUTICAS 100/SALMETEROL 50 INHL DISK 60 1 PUFF BY ACTIVE MOUTH TWICE DAILY 3) Non-VA LEVOTHYROXINE NA 175MCG TAB 175MCG BY MOUTH EVERY ACTIVE MORNING 30 MINUTES BEFORE BREAKFAST 4) Non-VA OMEPRAZOLE 20MG EC CAP 20MG BY MOUTH EVERY MORNING 30 ACTIVE MINUTES BEFORE BREAKFAST SOCIAL HISTORY Tobacco former smoker, quit >15 years ago Alcohol occasionally, mostly socially. Was in /[employer] for 38 years, now retired , 4 daughters and 1 son; 8 grandchildren; most live [facility] PE General: RESP clear to auscultation bilaterally CV RR S1 S2 No m/r/g (-) Pedal Edema GI BS + x 4, soft, nontender, nondistended, no rebound or guarding NEURO CN II-XII without focal deficit, gait steady without shuffle, MENTAL A&Ox3 Appropriate, Pleasant, Cooperative VITALS 96.1 F [35.6 C] (12/23/2024 13:13) 54 (12/23/2024 13:13) 20 (12/23/2024 13:13) 134/82 (12/23/2024 13:16) 0 (12/23/2024 13:13) 69 in [175.3 cm] (12/23/2023 13:13) 227.8 lb [103.33 kg] (12/23/2024 13:13) BMI: 33.7 A/P GERD -stable sx Asthma -stable on albuterol and advair -managed nonVA PCP ?labile bp -agrees to home telehealth -reinforced diet and exercise Hypothyroid -levothyroxine managed nonVA PCP Patient prefers to follow up with Off-site PCP regularly for titration of meds and management of chronic conditions. He will come here annually. Advised if anything changes and no longer following with off-site PCP, please call front desk auxiliary to schedule sooner appt with PCP. Follow Up Colonoscopy: Colonoscopy is due based on information available to this reminder. Patient has arranged or is choosing to arrange a Colonoscopy independent of and w/out assistance from this [facility]. Toxic Exposure Screening: The [place]/caregiver was asked if they believe the [place] experienced any toxic exposure(s), such as Airborne Hazards and Open Burn Pit, [place] War related exposures, Agent [place], Radiation, contaminated water at [place] or other such exposures, while serving in the [employer]. 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 The /caregiver was informed that we will continue to ask this screening question every 5 years. They can contact their provider/healthcare team if they have concerns about exposures and would like to be screened sooner. Printed information was offered and provided if desired. Medication Reconciliation: Outpatient: Has the patient been taking medications as documented in the EMLR? YES: The patient has been taking medications as documented in the EMLR. Essential Medication List for Review used to complete this medication reconciliation. INCLUDED IN THIS LIST: Alphabetical list of active outpatient prescriptions dispensed from this [facility] (local) and dispensed from another [facility] or [facility] facility (remote) as well as inpatient orders (local, pending and active), local clinic medications, locally documented non-VA medications, and local prescriptions that have or been discontinued in the past 90 days. - All changes in medications, including all non-VA/Herbal/OTC medications were entered into CPRS. - If there were any medications the patient should no longer take, they were discontinued. - The patient/caregiver was instructed to update this list, discard old lists, and take this list to the next appointment, whether with a VA or non-VA provider. /boogie/ LENA LEOS NP NURSE PRACTITIONER Signed: 12/27/2024 08:16 LENA LEOS
--- NOTE | 2024-12-30 10:23 | A.OFFPC_ITS ---
Intake Visit Reasons: Overdue Follow up Allergies No Known Allergies Allergy (Verified 06/14/24 11:44) Medication List - Last Reconciled 12/30/24 by Marshall Cheema MD albuterol sulfate 90 mcg/actuation 1 inh inhalation QID PRN 30 days fluticasone propion-salmeterol 250-50 mcg/dose (Advair Diskus) 1 inh inhalation BID levothyroxine 175 mcg PO QAM 90 days multivitamin 1 tab PO DAILY omeprazole 20 mg PO DAILY 90 days Tobacco use date assessed: 11/11/23 Dental Screening Dental Screen Date: 04/22/23 HPI Overdue Follow up HPI Details History - The patient is a 64-year-old male pres enting with prescription refill needs and chronic disease management. - The patient reports using Advair for a sthma management and infrequently using a rescue inhaler. - The patient confirms ongoing treatment with levothyroxine 175 mcg for hypothyroidism. - The patient has run out of omeprazole, which is used to manage gastroesophageal reflux disease. - The patient mentions having a thyroid function test abnormality from the previous year and requires repeat labs. - Affected by asthma, hypothyroidism, an d GERD, the patient?s current medication supplies for these conditions are diminishing, with intentions for future prescriptions and an upcoming physical exam. Problem List - Asthma - Hypothyroidism - Gastroesophageal Reflux Disease (GERD) - Elevated Thyroid Function Test results Patient Instructions - Continue taking all your medications a s previously prescribed. - bead picker the refills for your thyroid medication and omeprazole. - You will receive new inhalers; make bennett re to have them on hand. - Repeat your blood tests on a fasting b asis before your next physical exam on May 05. - Ensure to manage your heartburn sympto ms effectively until your omeprazole is refilled. Review of Systems - Neurological: No headaches no dizziness - Ear nose throat: No sore throat no hearing difficulty no ear pain - Cardiovascular: No syncope, no chest pain, no palpitations - Gastrointestinal: No nausea vomiting or diarrhea - Endocrine: No polyuria polydipsia no heat intolerance - Genitourinary: No dysuria , no blood in urine [facility] Medical History Slow to wake up after anesthesia Environmental allergies Seasonal allergies Bilateral shoulder pain GERD (gastroesophageal reflux disease) Hypothyroidism Asthma Surgical History Hx of colonoscopy (~2020) History of thumb surgery (~2020) History of left hip replacement (~2019) History of appendectomy (~2017) Hx of shoulder surgery (~2009) History of ankle surgery Family History Father Myocardial infarct Mother Stroke Social History Household Members: Spouse Housing: House Are you a primary career services director to a significant other at home: No Do you presently have visiting nurse or other home services: No 75 years or older and lives alone: No Alcohol intake: current Alcohol intake frequency: a few times a month Patient Tobacco Use Status: Never used Tobacco e-Cigarette/Vaping Use: Never Used Second Hand Smoke Exposure: No Current occupational status: retired 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 Gordo Goodson, Erica Reed, Roque Garner and colleagues, with an educational julio from [employer]. Physical exam (Primary Care) Tobacco/Smoking Status: Tobacco use Status Tobacco use date assessed 11/11/23 12/30/24 10:23 Patient Tobacco Use Status Never used Tobacco 12/30/24 10:23 e-Cigarette/Vaping Use Never Used 12/30/24 10:23 Thrive Assessment: Date of Thrive Assessment Date Thrive assessed 04/26/24 12/30/24 10:23 Telehealth Telehealth Telehealth Platform: [email or web address] Location of provider rendering services: practice address Location of patient: address on file Patient Identification confirmed using: Name, : Yes Telehealth method: video Patient verbally consented to treatment: Yes Patient verbally consented to billing insurance company: Yes Patient informed of any privacy concerns related to visit: Yes Minutes spent on Phone/Video with Pt.: 14 Coding Level of Care Code Tele Est Pt Level 3 (13127) Diagnoses Moderate persistent asthma without complication J45.40 Asthma complication type: uncomplicated Hypothyroidism, unspecified type E03.9 Hypothyroidism type: unspecified Chronic GERD K21.9 Assessment & Plan Assessment & Plan (1) Asthma, moderate persistent: Code(s): J45.40 - Moderate persistent asthma, uncomplicated Category: Medical Qualifiers: Asthma complication type: uncomplicated Qualified Code(s): J45.40 - Moderate persistent asthma, uncomplicated (2) Hypothyroidism: Code(s): E03.9 - Hypothyroidism, unspecified Category: Medical Qualifiers: Hypothyroidism type: unspecified Qualified Code(s): E03.9 - Hypothyroidism, unspecified (3) Chronic GERD: Code(s): K21.9 - Gastro-esophageal reflux disease without esophagitis Category: Medical Plan History - The patient is a 64-year-old male presenting with prescription refill needs and chronic disease management. - The patient reports using Advair for asthma management and infrequently using a rescue inhaler. - The patient confirms ongoing treatment with levothyroxine 175 mcg for hypothyroidism. - The patient has run out of omeprazole, which is used to manage gastroesophageal reflux disease. - The patient mentions having a thyroid function test abnormality from the previous year and requires repeat labs. - Affected by asthma, hypothyroidism, and GERD, the patient?s current medication supplies for these conditions are diminishing, with intentions for future prescriptions and an upcoming physical exam. Problem List - Asthma - Hypothyroidism - Gastroesophageal Reflux Disease (GERD) - Elevated Thyroid Function Test results Patient Instructions - Continue taking all your medications as previously prescribed. - bead picker the refills for your thyroid medication and omeprazole. - You will receive new inhalers; make sure to have them on hand. - Repeat your blood tests on a fasting basis before your next physical exam on May 05. - Ensure to manage your heartburn symptoms effectively until your omeprazole is refilled. Orders: Orders Comprehensive [place]. Panel Fast Today E03.9 - Hypothyroidism, unspecified, J45.40 - Moderate persistent asthma, uncomplicated, K21.9 - Gastro-esophageal reflux disease without esophagitis Lipid Panel Today E03.9 - Hypothyroidism, unspecified, J45.40 - Moderate persistent asthma, uncomplicated, K21.9 - Gastro-esophageal reflux disease without esophagitis Complete Blood Count Auto Diff Today E03.9 - Hypothyroidism, unspecified, J45.40 - Moderate persistent asthma, uncomplicated, K21.9 - Gastro-esophageal reflux disease without esophagitis TSH reflex Free T4 Today E03.9 - Hypothyroidism, unspecified, J45.40 - Moderate persistent asthma, uncomplicated, K21.9 - Gastro-esophageal reflux disease without esophagitis Medications: Refilled albuterol sulfate 90 mcg/actuation 1 inh inhalation QID 30 days PRN 18 grams 2RF shortness of breath or wheezing fluticasone propion-salmeterol 250-50 mcg/dose (Advair Diskus) 1 inh inhalation BID 60 ea 5RF levothyroxine 175 mcg PO QAM 90 days 90 tabs 1RF omeprazole 20 mg PO DAILY 90 days 90 caps 1RF
== END 2024-12-30 10:36 | disposition home or self-care (01) ==
LOC: HO.HMCC 08:16
PROVIDERS: PCP Internal Medicine; Visit Provider Internal Medicine
DX: J45.40 Moderate persistent asthma, uncomplicated (principal); E03.9 Hypothyroidism, unspecified; K21.9 Gastro-esophageal reflux disease without esophagitis

== ENCOUNTER → 2024-12-30 08:16 | Outpatient (BNVA) | payer OTHER, SELFPAY | PROVIDERS: PCP Internal Medicine; Visit Provider Internal Medicine | DX: Z13.89 Encounter for screening for other disorder (principal) ==

== ENCOUNTER 2025-04-26 09:23 | Outpatient (REF) | payer OTHER, SELFPAY ==
--- OUTSIDE RECORDS SUMMARY | 2025-04-26 11:05 | XMS_ITS | Clinical Summary ---
Author Organization [facility] Address [address] [place] [address] Drive [address] [place] [id number] Phone Care Team Providers Care Passenger Barge Master Name Role Phone Marshall hCeema MD Primary Care Provider [phone] Encounters Date Type Department Care Team Description 03/01/2025 1:28 PM EDT - 03/01/2025 11:59 PM EDT Hospital Encounter [facility] [address] [place] [address] Carl Blanton MD Discharge Disposition: Home or Self Care from Last 3 Months Social History Tobacco Use Types Packs/Day Years Used Date Smoking Tobacco: Never Assessed Education Answer Date Recorded Are you interested in more education? Not on laron e 11/28/2022 Are you concerned about learning? Not on file 11/28/2022 No 11/28/2022 No 11/28/2022 Digital Access Answer Date Recorded No 12/27/2022 No 12/27/2022 No 12/27/2022 Reliable internet access at home? Not on file 12/27/2022 Device with a working camera? Not on file Sex and Gender Information Value Date Recorded Sex Assigned at Not on file Legal Sex Male 12:31 PM EDT Gender Identity Not on file Sexual Orientation Not on file Plan of Treatment Health Maintenance Due Date Last Done Comments LIPID PANEL 1960 DEPRESSION SCREENING 1974 SMOKING Hx and SMOKELESS TOBACCO SCREENING 12/19/1975 HEPATITIS C SCREENING 1980 HIV ONE-TIME SCREENING (18-6 5 YEARS) 1980 COLOGUARD 12/19/2007 COLONOSCOPY 12/19/2007 COLORECTAL CANCER SCREENING 12/19/2007 FIT TEST 12/19/2007 FOBT 12/19/2007 SIGMOIDOSCOPY 12/19/2007 VIRTUAL COLONOSCOPY 12/19/2007 PNEUMOCOCCAL VACCINES (50+ years) (1 of 1 - PCV) 2012 ZOSTER VACCINES (1 of 2) 2012 INFLUENZA VACCINE (#1) 2025 8, 07/03/2017 COVID-19 VACCINE (3 - 2024-2 6 season) 2025 10/30/2020, 10/09/2020 Adult Td,Tdap Booster 06/17/2031 06/17/2021 , 05/11/2020 RSV VACCINE (1 - 1-dose 75+ series) 2037 HEPATITIS A VACCINES Aged Out No long er eligible based on patient's age to complete this topic HIB VACCINES Aged Out No longer eligi ble based on patient's age to complete this topic MENINGOCOCCAL VACCINES (ACWY) Aged Out No longer eligible based on patient's age to complete this topic MENINGOCOCCAL VACCINES (B) Aged Out N o longer eligible based on patient's age to complete this topic Medical Devices Not on file Procedures Procedure Name Priority Date/Time Associated Diagnosis Comments ANATOMIC PATHOLOGY Routine 03/01/2025 12 :00 AM EDT from Last 3 Months Results * Anatomic Pathology (03/01/2025 12:00 AM EDT) 03/01/2025 03/01/2025 3:0 1 PM EDT Narrative SEE NARRATIVE - 03/02/2025 2:31 [place] [address] Coating Manager: Chase Jordan MD Surgical Pathology Report FINAL PATHOLOGIC DIAGNOSIS: SIGMOID COLON, POLYPS X 2: Hyperplastic polyps. Electronically Signed Out By Chase Jordan MD By his/her signature above, the pathologist listed as making the Final Diagnosis certifies that he/she has personally reviewed this case and confirmed or corrected the diagnosis. CLINICAL HISTORY Follow-up polyp, screening. SPECIMENS SUBMITTED: A: SIGMOID COLON, POLYPS X 2 GROSS DESCRIPTION SIGMOID COLON, POLYPS X 2: Received in formalin are 2 irregular holder-pink mucosal tissue fragments measuring 0.2 x 0.2 x 0.2 cm and 0.4 x 0.2 x 0.1 cm which are submitted in toto in a single cassette labeled A1. Grossed by: NOHEMY Galeano, SHERLEY(ASCP) KORY 03/01/2025 Grossing Staff: [id number] Patient Name: ANGELI GRAY : 1960 (Age: 64) Sex: M Institution: [facility] Location: [place] Date of Operation: 03/01/2025 Date of Reported: 03/02/2025 14:31 Results To: Carl Blanton MD, BS Marshall Cheema MD [facility] us Carl Blanton MD PATHOLOGY ORDERABLES Final R esult SEE NARRATIVE from Last 3 Months Insurance [facility] [place] [address] [facility] Care Teams Passenger Barge Master Relationship Specialty Start Date End Date Marshall Cheema MD 1959 [facility] [place] [address] PCP - General Internal Medicine 10/15/20 Additional Source Comments The information contained in this document represents components of the legal health record. It is not the complete legal health record[facility]
[2025-04-26 14:00] LABS: MANUAL DIFF FLAG NO
[2025-04-26 14:03] LABS: Hematocrit 44.6 % (42.0-52.0); Hemoglobin 15.8 g/dl (14.0-18.0); Imm Gran Abs Auto 0.07 X10*3/uL (0.00-0.03); Imm Gran Pct Auto 1.2 % (0.0-0.4); Lymphocytes Absolute Auto 1.2 X10*3/uL (1.2-4.9); Mean Corpuscular HGB Conc 35.4 g/dl (31.0-36.0); Mean Corpuscular Hemoglobin 30.8 pg (27.0-33.0); Mean Corpuscular Volume 86.9 fL (80.0-98.0); NRBC Abs Auto 0.000 X10*3/uL (0.0-0.012); NRBC Pct Auto 0.0 /100WBC (0.0-0.2); Platelet Count 220 X10*3/uL (160-400); Red Blood Count 5.13 X10*6/uL (4.60-5.80); White Blood Count 5.7 X10*3/uL (4.8-10.8)
[2025-04-26 14:36] LABS: Alanine Aminotransferase 24 U/L (0-40); Albumin Level 4.4 g/dL (3.5-5.0); Alkaline Phosphatase 53 U/L (39-117); Anion Gap 11 (12-20); Aspartate Amino Transferase 28 U/L (5-37); Blood Urea Nitrogen 14 mg/dL (9-16); Calcium 9.2 mg/dL (8.4-10.2); Carbon Dioxide 25 mmol/L (22-29); Chloride 107 mmol/L (96-108); Cholesterol 143 mg/dL (<200); Estimated Glomerular Filt Rate > 60; HDL Cholesterol 36 mg/dL (>40); Potassium 4.4 mmol/L (3.3-5.1); Sodium 139 mmol/L (135-145); Total Protein 7.3 g/dL (6.5-8.0); Triglycerides 118 mg/dL (<150)
[2025-04-26 15:16] LABS: Free T4 (Free Thyroxine) 1.41 ng/dL (0.71-1.85)
== END 2025-04-26 09:24 | disposition home or self-care (01) ==
LOC: HO.HMGCLDS 09:23
PROVIDERS: PCP Internal Medicine; Visit Provider Internal Medicine
DX: K21.9 Gastro-esophageal reflux disease without esophagitis (principal); E03.9 Hypothyroidism, unspecified; J45.40 Moderate persistent asthma, uncomplicated
CPT/HCPCS: 36415; 80053; 80061; 84439; 84443; 85025

== ENCOUNTER 2025-05-05 11:15 | Outpatient (AMB) | payer OTHER, SELFPAY ==
--- NOTE | 2025-05-05 11:17 | A.OFFPC_ITS ---
Vital Signs 05/05/25 11:18 Height 5 ft 9 in Weight 217 lb BMI 32.0 BP 110/70 Blood Pressure Location Rt brachial Position Sitting Respiration 15 Pulse 67 Pulse Source Pulse Oximeter Temp 98.1 F Temp Source Oral Pulse Oximetry (%) 97 Oxygen Delivery Method Room Air Intake Visit Reasons: Annual PE Allergies No Known Allergies Allergy (Verified 06/14/24 11:44) Medication List - Last Reconciled 05/05/25 by Marshall Cheema MD albuterol sulfate 90 mcg/actuation 1 inh inhalation QID PRN 30 days fluticasone propion-salmeterol 250-50 mcg/dose (Advair Diskus) 1 inh inhalation BID levothyroxine (Synthroid) 150 mcg PO DAILY multivitamin 1 tab PO DAILY omeprazole 20 mg PO DAILY 90 days Tobacco use date assessed: 05/05/25 Dental Screening Dental Screen Date: 05/05/25 Did you have a dental visit in the last 12 months?: Yes Did you have a dental problem in the last 6 months where you did not have access to dental care?: No Was dental information given to patient?: Patient has dentist HPI Annual PE HPI Details History of Present Illness The patient is a 56-year-old male presenting with the need for a physical examination and management of chronic conditions. Chronic Gastroesophageal Reflux Disease (GERD): - The patient reports ongoing management of GERD with omeprazole 20 mg daily. - GERD symptoms are controlled with medi cation. Hypothyroidism: - Past TSH level was low at 0.02, prompt ing a reduction in levothyroxine from 175 mcg to 150 mcg. - Thyroid function tests are planned to be repeated in six weeks from the appointment. Asthma: - The patient manages asthma with Advair , reporting stable control and improvement. Degenerative Arthritis: - The patient experiences joint aching a nd soreness, notably in the neck, related to degenerative spondylosis and osteoarthritis. - The left glenohumeral joint shows jairo ed osteoarthritic changes. Lateral Epicondylitis: - Elbow pain began approximately two mon ths ago. - Symptoms include tenderness, especiall y with certain arm positions. Spondylosis: - Neck pain and tenderness have been not ed, with degenerative changes confirmed by X-ray. - Considers acupuncture and pain managem ent strategies. Ventral Hernia: - Noticed a year ago, presenting as a sm all bulge in the abdominal wall. - Relates to heavy lifting and physical exertion. Obesity: - The patient's BMI is elevated at 32.0 and reports difficulty in losing weight. Medical History: - Chronic Gastroesophageal Reflux Diseas e (GERD) - Hypothyroidism - Asthma - Degenerative Arthritis - Spondylosis - Obesity Surgical History: - Arthroscopic surgery on the shoulder Social History: - The patient reports spacing out strenu ous activities like cutting wood to manage physical strain. - Attempts weight management but experie nces difficulty losing weight. Health Maintenance - Regular physical examinations - Thyroid function tests scheduled for r epeat in six weeks - [facility] [place] patient does not remember the name next 1 will be in 2029 Diagnostic results - CBC and electrolytes within normal silva its - Kidney functions intact - Liver enzymes stable - LDL: 84 - TSH: 0.02 (low) Patient Instructions - Continue with current medications as p rescribed. - Return for thyroid function tests in s ix weeks. - Monitor symptoms and modify lifestyle as discussed. - Use support belts if engaging in heavy lifting. To prevent worsening of ventral hernia - start Celebrex 100 mg with breakfast a nd if needed after a week you may take 2 capsules Follow-up 2 weeks for starting new medication and for thyroid Review of Systems - General: No fever no chills - Neurological: No headaches no dizzin ess - Ear nose throat: No sore throat no hearing difficulty no ear pain - Cardiovascular: No syncope, no chest pain, no palpitations - Gastrointestinal: No nausea vomiting or diarrhea - Endocrine: No polyuria polydipsia no heat intolerance - Genitourinary: No dysuria - Skin: No new complaints Physical Exam General: Cooperative, healthy appearing, comfortable, no acute distress Orientation: Patient oriented x3 Head: Normal to inspection Ears: Within normal limit visually Nose: Normal external nose present Face and sinus: Normal facial exam Eyes: Appearance normal, extraocular movement intact pupils reactive Neck: Normal visual inspection, supple, patient complaining of clicking with the movement, multilevel degenerative spondylosis no thyromegaly Respiratory: Normal respiratory effort and able to speak in complete sentences. Clear to auscultation, no stridor Cardiovascular: S1 and S2 RRR GI: Normal to inspection. Soft to palpation and nontender, slight ventral hernia Skin: Turgor normal, no acute findings Neuro: Patient oriented x3, motor sensory intact, balance intact, tandem pass Extremities: Normal to inspection, pain in elbow, most likely tendinitis, range of motion intact in shoulders and elbows another joints . [facility] Medical History Slow to wake up after anesthesia Environmental allergies Seasonal allergies Bilateral shoulder pain GERD (gastroesophageal reflux disease) Hypothyroidism Asthma Surgical History Hx of colonoscopy (~2020) History of thumb surgery (~2020) History of left hip replacement (~2019) History of appendectomy (~2017) Hx of shoulder surgery (~2009) History of ankle surgery Family History Father Myocardial infarct Mother Stroke Social History Household Members: Spouse Housing: House Are you a primary director of medicare to a significant other at home: No Do you presently have visiting nurse or other home services: No 75 years or older and lives alone: No Alcohol intake: current Alcohol intake frequency: a few times a month Patient Tobacco Use Status: Never used Tobacco e-Cigarette/Vaping Use: Never Used Second Hand Smoke Exposure: No Current occupational status: retired 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 1. Little interest or pleasure in doing things: not at all 2. Feeling down, depressed, or hopeless: not at all 3. Trouble falling or staying asleep, or sleeping too much: several days 4. Feeling tired or having little energy: not at all 5. Poor appetite or overeating: not at all 6. Feeling bad about yourself - or that you are a failure or have let yourself or your family down: not at all 7. Trouble concentrating on things, such as reading the newspaper or watching television: not at all 8. Moving or speaking so slowly that other people could have noticed. Or the opposite - being so fidgety or restless that you have been moving around a lot more than usual: not at all 9. Thoughts that you would be better off or of hurting yourself in some way: not at all Total score: 1 Depression Screening Interpretation: Negative Depression Screening Done: Yes 87053 - PHQ-9 Billing: Yes Source: Developed by Drs. Gordo Goodson, Erica Reed, Roque Garner and colleagues, with an educational julio from [employer]. Thrive Questionnaire Date Thrive assessed: 05/05/25 I am a: Patient What is your living situation today?: I have a steady place to live Within the past 12 months, did the food you bought not last and you didn't have the money to get more?: Never true Within the past 12 months, did you worry whether your food would run out before you got money to buy more?: Never true Do you have trouble paying for medicines?: No Do you have trouble getting transportation to medical appointments?: No Do you have trouble paying your heating and electricity bill?: No Do you have trouble taking care of your child, family member or friend?: No Do you have trouble with day-to-day activities such as bathing, preparing meals, shopping, managing finances, etc.?: No Are you currently unemployed and looking for a job?: No Are you interested in more education?: No Please select the resources that you would like help with: None Currently or been in a relationship where the following occur: No concerns reported THRIVE Score: 0 AUDIT C Alcohol Use Questionnaire (AUDIT-C) 1. How often do you have a drink containing alcohol?: 2-4 times a month 2. How many drinks containing alcohol do you have on a typical day when you are drinking?: 3 or 4 3. How often do you have six or more drinks on one occasion?: Less than monthly Total Score: 4 Score Reviewed/Action Taken: Yes WILMER-7 AMB Questionnaire WILMER-7 Date WILMER - 7 assessed: 05/05/25 Feeling nervous, anxious, or on edge: 0 = Not at all Not being able to stop or control worryin = Not at all Worrying too much about different things: 0 = Not at all Trouble relaxin = Not at all Being so restless that it is hard to sit still: 0 = Not at all Becoming easily annoyed or irritable: 0 = Not at all Feeling afraid as if something awful might happen: 0 = Not at all Total WILMER-7 score (0-4 normal; 5-9 mild; 10-14 moderate; 15-21 severe): 0 Source: Developed by Drs. Gordo Goodson, Erica Reed, Roque Garner and colleagues, with an educational julio from [employer]. WILMER-7 Assessment Billing WILMER-7 Assessment Tool: WILMER-7 Assessment 85359 Physical exam (Primary Care) Vital Signs: Last Vital Signs Temp 98.1 F 05/05/25 11:18 Pulse 67 05/05/25 11:18 Resp 15 05/05/25 11:18 BP 110/70 05/05/25 11:18 Pulse Ox 97 05/05/25 11:18 Oxygen Delivery Method Room Air 05/05/25 11:18 BMI result Body Mass Index 32.0 Tobacco/Smoking Status: Tobacco use Status Tobacco use date assessed 05/05/25 05/05/25 11:21 Patient Tobacco Use Status Never used Tobacco 05/05/25 11:21 e-Cigarette/Vaping Use Never Used 05/05/25 11:21 PHQ-9: PHQ-9 Score PHQ-9: Total score 1 05/05/25 11:39 Depression Screening Interpretation: Negative Thrive Assessment: Date of Thrive Assessment Date Thrive assessed 05/05/25 05/05/25 11:24 Currently or been in a relationship where the following occur: No concerns reported Coding Level of Care Code Est Pt Level 4 (94515) Est Pt Prev Care 40-64y(91132) Diagnoses Encounter for general adult medical examination with abnormal findings Z00.01 Tendinitis of right elbow M77.8 Osteoarthritis involving multiple joints on both sides of body M15.9 Moderate persistent asthma without complication J45.40 Asthma complication type: uncomplicated Chronic GERD K21.9 Hypothyroidism, unspecified type E03.9 Hypothyroidism type: unspecified 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 Spinal osteoarthritis complication: without myelopathy or radiculopathy Osteoarthritis of left glenohumeral joint M19.012 Ventral hernia without obstruction or gangrene K43.9 Obstruction and gangrene presence: without obstruction or gangrene Additional Codes WILMER-7 Assessment Billing - WILMER-7 Assessment Tool: WILMER-7 Assessment 99649 ([id number]) PHQ-9 - 18012 - PHQ-9 Billing: Yes ([id number]) Assessment & Plan Assessment & Plan (1) Encounter for general adult medical examination with abnormal findings: Code(s): Z00.01 - Encounter for general adult medical examination with abnormal findings Category: Medical (2) Tendinitis of right elbow: Code(s): M77.8 - Other enthesopathies, not elsewhere classified Category: Medical (3) Osteoarthritis involving multiple joints on both sides of body: Code(s): M15.9 - Polyosteoarthritis, unspecified Category: Medical (4) Asthma, moderate persistent: Code(s): J45.40 - Moderate persistent asthma, uncomplicated Category: Medical Qualifiers: Asthma complication type: uncomplicated Qualified Code(s): J45.40 - Moderate persistent asthma, uncomplicated (5) Chronic GERD: Code(s): K21.9 - Gastro-esophageal reflux disease without esophagitis Category: Medical (6) Hypothyroidism: Code(s): E03.9 - Hypothyroidism, unspecified Category: Medical Qualifiers: Hypothyroidism type: unspecified Qualified Code(s): E03.9 - Hypothyroidism, unspecified (7) DJD (degenerative joint disease) of cervical spine: Code(s): M47.812 - Spondylosis without myelopathy or radiculopathy, cervical region Category: Medical Qualifiers: Spinal osteoarthritis complication: without myelopathy or radiculopathy Qualified Code(s): M47.812 - Spondylosis without myelopathy or radiculopathy, cervical region (8) Osteoarthritis of left glenohumeral joint: Code(s): M19.012 - Primary osteoarthritis, left shoulder Category: Medical (9) Ventral hernia: Code(s): K43.9 - Ventral hernia without obstruction or gangrene Category: Medical Qualifiers: Obstruction and gangrene presence: without obstruction or gangrene Qualified Code(s): K43.9 - Ventral hernia without obstruction or gangrene Plan History of Present Illness The patient is a 56-year-old male presenting with the need for a physical examination and management of chronic conditions. Chronic Gastroesophageal Reflux Disease (GERD): - The patient reports ongoing management of GERD with omeprazole 20 mg daily. - GERD symptoms are controlled with medication. Hypothyroidism: - Past TSH level was low at 0.02, prompting a reduction in levothyroxine from 175 mcg to 150 mcg. - Thyroid function tests are planned to be repeated in six weeks from the appointment. Asthma: - The patient manages asthma with Advair, reporting stable control and improvement. Degenerative Arthritis: - The patient experiences joint aching and soreness, notably in the neck, related to degenerative spondylosis and osteoarthritis. - The left glenohumeral joint shows marked osteoarthritic changes. Lateral Epicondylitis: - Elbow pain began approximately two months ago. - Symptoms include tenderness, especially with certain arm positions. Spondylosis: - Neck pain and tenderness have been noted, with degenerative changes confirmed by X-ray. - Considers acupuncture and pain management strategies. Ventral Hernia: - Noticed a year ago, presenting as a small bulge in the abdominal wall. - Relates to heavy lifting and physical exertion. Obesity: - The patient's BMI is elevated at 32.0 and reports difficulty in losing weight. Medical History: - Chronic Gastroesophageal Reflux Disease (GERD) - Hypothyroidism - Asthma - Degenerative Arthritis - Spondylosis - Obesity Surgical History: - Arthroscopic surgery on the shoulder Social History: - The patient reports spacing out strenuous activities like cutting wood to manage physical strain. - Attempts weight management but experiences difficulty losing weight. Health Maintenance - Regular physical examinations - Thyroid function tests scheduled for repeat in six weeks - Colonoscopy completed this year [facility] [place] patient does no t remember the name next 1 will be in 2029 Diagnostic results - CBC and electrolytes within normal limits - Kidney functions intact - Liver enzymes stable - LDL: 84 - TSH: 0.02 (low) Patient Instructions - Continue with current medications as prescribed. - Return for thyroid function tests in six weeks. - Monitor symptoms and modify lifestyle as discussed. - Use support belts if engaging in heavy lifting. To prevent worsening of ventral hernia - start Celebrex 100 mg with breakfast and if needed after a week you may take 2 capsules Follow-up 2 weeks for starting new medication and for thyroid Orders: Orders TSH reflex Free T4 6 Weeks E03.9 - Hypothyroidism, unspecified Medications: New celecoxib (Celebrex) 200 mg (2 x 100 mg) PO DAILY 180 caps 0RF 90 days
[2025-05-05 11:18] VITALS: BP 110/70; PULSE 67; RESP 15; TEMP 36.7; O2SAT 97; BMI 32.0
--- OUTSIDE RECORDS SUMMARY | 2025-05-05 12:28 | XMS_ITS | Clinical Summary ---
Author Organization [facility] Address [address] [place] [address] Drive [address] [place] [id number] Phone Care Team Providers Care Knock Out Hand Name Role Phone Marshall Cheema MD Primary Care Provider [phone] Encounters Date Type Department Care Team Description 03/01/2025 1:28 PM EDT - 03/01/2025 11:59 PM EDT Hospital Encounter [facility] [address] [place] [address] Carl Blanton MD Discharge Disposition: Home or [...] SEE NARRATIVE - 03/02/2025 2:31 [place] [address] Java Project Manager: Chase Jordan MD Surgical Pathology Report [...] : 1960 (Age: 64) Sex: M Institution: [facility] Location: [facility] Date of Operation: 03/01/2025 Date of Reported: 03/02/2025 14:31 Results To: Carl Blanton MD, BS Marshall Cheema MD [facility] us Carl Blanton MD PATHOLOGY ORDERABLES Final R esult SEE NARRATIVE from Last 3 Months Insurance [facility] [place] [address] [facility] Care Teams Knock Out Hand Relationship Specialty Start Date End Date Marshall Cheema MD [address] [facility] [place] [address] PCP - General Internal Medicine 10/15/20 Additional Source Comments The information contained in this document represents components of the legal health record. It is not the complete legal health record.[facility]
== END 2025-05-05 11:43 | disposition home or self-care (01) ==
LOC: HO.HMCC 11:16
PROVIDERS: PCP Internal Medicine; Visit Provider Internal Medicine
DX: Z00.01 Encounter for general adult medical examination with abnormal findings (principal); M47.812 Spondylosis without myelopathy or radiculopathy, cervical region; M19.012 Primary osteoarthritis, left shoulder; M77.8 Other enthesopathies, not elsewhere classified; J45.40 Moderate persistent asthma, uncomplicated; K21.9 Gastro-esophageal reflux disease without esophagitis; E03.9 Hypothyroidism, unspecified; K43.9 Ventral hernia without obstruction or gangrene

== ENCOUNTER → 2025-05-05 11:15 | Outpatient (BNVA) | payer OTHER, SELFPAY | PROVIDERS: PCP Internal Medicine; Visit Provider Internal Medicine | DX: Z00.01 Encounter for general adult medical examination with abnormal findings (principal); K21.9 Gastro-esophageal reflux disease without esophagitis; E78.5 Hyperlipidemia, unspecified; J45.909 Unspecified asthma, uncomplicated; M47.812 Spondylosis without myelopathy or radiculopathy, cervical region; K43.9 Ventral hernia without obstruction or gangrene; E66.9 Obesity, unspecified; M77.8 Other enthesopathies, not elsewhere classified; J45.40 Moderate persistent asthma, uncomplicated; E03.9 Hypothyroidism, unspecified; M19.012 Primary osteoarthritis, left shoulder; Z68.32 Body mass index [BMI] 32.0-32.9, adult | CPT/HCPCS: 96127; 99212 ==

== ENCOUNTER 2025-06-28 13:15 | Outpatient (REF) | payer OTHER, SELFPAY ==
--- OUTSIDE RECORDS SUMMARY | 2025-06-28 16:21 | XMS_ITS | Clinical Summary ---
Author Organization [facility] Address [address] [place] [address] [place] [id number] Phone Care Team Providers Care Manager Bar Name Role Phone Marshall Cheema MD Primary Care Provider [phone] Social History Tobacco Use Types Packs/Day Years [...] SCREENING (18-6 5 YEARS) 1980 COLOGUARD 12/19/2007 FIT TEST 12/19/2007 FOBT 12/19/2007 SIGMOIDOSCOPY 12/19/2007 VIRTUAL COLONOSCOPY 12/19/2007 PNEUMOCOCCAL VACCINES (50+ years) (1 of 1 - PCV) 2012 ZOSTER VACCINES (1 of 2) 2012 INFLUENZA VACCINE (#1) 2025 8, 07/03/2017 COVID-19 VACCINE (3 - 2024-2 6 season) 2025 10/30/2020, 10/09/2020 Adult Td,Tdap Booster 06/17/2031 06/17/2021 , 05/11/2020 COLONOSCOPY 03/01/2032 03/01/2025 COLORECTAL CANCER SCREENING 03/01/2032 RSV VACCINE (1 - 1-dose 75+ series) [...] Procedure Name Priority Date/Time Associated Diagnosis Comments COLONOSCOPY FOR RESULT ENTRY ONLY Routine 03/01/2025 from Last 3 Months or Most Recently Relevant to Health Maintenance Results * COLONOSCOPY FOR RESULT ENTRY ONLY (03/01/2025) Colonoscopy External Historical Provider MD HEALTH MAINTENANCE Final Result from Last 3 Months or Most Recently Relevant to Health Maintenance Insurance [facility] Care Teams Manager Bar Relationship Specialty Start Date End Date Marshall Cheema MD [address] [facility] [place] [address] PCP - General Internal Medicine 10/15/20 Additional Source Comments The information contained in this document represents components of the legal health record. It is not the complete legal health record.[facility]
== END 2025-06-28 13:16 | disposition home or self-care (01) ==
LOC: HO.HMGCLDS 13:15
PROVIDERS: PCP Internal Medicine; Visit Provider Internal Medicine
DX: E03.9 Hypothyroidism, unspecified (principal)
CPT/HCPCS: 36415; 84443

== ENCOUNTER 2025-07-11 08:42 | Outpatient (AMB) | payer OTHER, SELFPAY ==
--- NOTE | 2025-07-11 11:16 | MHC.PC.OV ---
Intake Visit Reasons: 2 mo follow up Allergies No Known Allergies Allergy (Verified 06/14/24 11:44) Medication List - Last Reconciled 07/11/25 by Marshall Cheema MD albuterol sulfate 90 mcg/actuation 1 inh inhalation QID PRN 30 days celecoxib (Celebrex) 200 mg (2 x 100 mg) PO DAILY 90 days fluticasone propion-salmeterol 250-50 mcg/dose (Advair Diskus) 1 inh inhalation BID levothyroxine (Synthroid) 150 mcg PO DAILY multivitamin 1 tab PO DAILY omeprazole 20 mg PO DAILY 90 days Tobacco use date assessed: 05/05/25 Dental Screening Dental Screen Date: 05/05/25 HPI 2 mo follow up HPI Details The patient is a 64-year-old male presenting with the management of chronic conditions. Chronic Gastroesophageal Reflux Disease (GERD): - The patient reports ongoing management of GERD with omeprazole 20 mg daily. - GERD symptoms are controlled with medication. Hypothyroidism: - taking levothyroxine 150 mcg. - TSH was repeated in Jun of this year, and its WNL Asthma: - The patient manages asthma with Advair, reporting stable control and improvement. Degenerative Arthritis: - Celebrax has helped a lot, he is taking 200 mg daily, and has been more active Patient Instructions - Continue with current medications as prescribed. - Return for f/u in 4 M Review of Systems - General: No fever no chills - Neurological: No headaches no dizziness - Ear nose throat: No sore throat no hearing difficulty no ear pain - Cardiovascular: No syncope, no chest pain, no palpitations - Gastrointestinal: No nausea vomiting or diarrhea - Endocrine: No polyuria polydipsia no heat intolerance - Genitourinary: No dysuria - Skin: No new complaints [facility] Medical History Slow to wake up after anesthesia Environmental allergies Seasonal allergies Bilateral shoulder pain GERD (gastroesophageal reflux disease) Hypothyroidism Asthma Surgical History Hx of colonoscopy (~2020) History of thumb surgery (~2020) History of left hip replacement (~2019) History of appendectomy (~2017) Hx of shoulder surgery (~2009) History of ankle surgery Family History Father Myocardial infarct Mother Stroke Social History Household Members: Spouse Housing: House Are you a primary healthcare science specialist to a significant other at home: No Do you presently have visiting nurse or other home services: No 75 years or older and lives alone: No Alcohol intake: current Alcohol intake frequency: a few times a month Patient Tobacco Use Status: Never used Tobacco e-Cigarette/Vaping Use: Never Used Second Hand Smoke Exposure: No Current occupational status: retired 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 Cognitive needs: No Hearing needs: No Vision needs: Yes Questionnaire Thrive Questionnaire Date Thrive assessed: 05/05/25 I am a: Patient What is your living situation today?: I have a steady place to live Within the past 12 months, did the food you bought not last and you didn't have the money to get more?: Never true Within the past 12 months, did you worry whether your food would run out before you got money to buy more?: Never true Do you have trouble paying for medicines?: No Do you have trouble getting transportation to medical appointments?: No Do you have trouble paying your heating and electricity bill?: No Do you have trouble taking care of your child, family member or friend?: No Do you have trouble with day-to-day activities such as bathing, preparing meals, shopping, managing finances, etc.?: No Are you currently unemployed and looking for a job?: No Are you interested in more education?: No Please select the resources that you would like help with: None Currently or been in a relationship where the following occur: No concerns reported THRIVE Score: 0 WILMER-7 AMB Questionnaire WILMER-7 Date WILMER - 7 assessed: 05/05/25 Source: Developed by Drs. Gordo Goodson, Erica Reed, Roque Garner and colleagues, with an educational julio from [employer]. Physical exam (Primary Care) Tobacco/Smoking Status: Tobacco use Status Tobacco use date assessed 05/05/25 07/11/25 11:19 Patient Tobacco Use Status Never used Tobacco 07/11/25 11:19 e-Cigarette/Vaping Use Never Used 07/11/25 11:19 Thrive Assessment: Date of Thrive Assessment Date Thrive assessed 05/05/25 07/11/25 11:19 Currently or been in a relationship where the following occur: No concerns reported Telehealth Telehealth Telehealth Platform: [employer] Location of provider rendering services: practice address Location of patient: address on file Patient Identification confirmed using: Name, : Yes Telehealth method: video Patient verbally consented to treatment: Yes Patient verbally consented to billing insurance company: Yes Patient informed of any privacy concerns related to visit: Yes Minutes spent on Phone/Video with Pt.: 14 Coding Level of Care Code Tele Est Pt Level 3 (60335) Diagnoses Moderate persistent asthma without complication J45.40 Asthma complication type: uncomplicated Osteoarthritis involving multiple joints on both sides of body M15.9 Chronic GERD K21.9 Hypothyroidism, unspecified type E03.9 Hypothyroidism type: unspecified Assessment & Plan Assessment & Plan (1) Asthma, moderate persistent: Code(s): J45.40 - Moderate persistent asthma, uncomplicated Category: Medical Qualifiers: Asthma complication type: uncomplicated Qualified Code(s): J45.40 - Moderate persistent asthma, uncomplicated (2) Osteoarthritis involving multiple joints on both sides of body: Code(s): M15.9 - Polyosteoarthritis, unspecified Category: Medical (3) Chronic GERD: Code(s): K21.9 - Gastro-esophageal reflux disease without esophagitis Category: Medical (4) Hypothyroidism: Code(s): E03.9 - Hypothyroidism, unspecified Category: Medical Qualifiers: Hypothyroidism type: unspecified Qualified Code(s): E03.9 - Hypothyroidism, unspecified Plan The patient is a 64-year-old male presenting with the management of chronic conditions. Chronic Gastroesophageal Reflux Disease (GERD): - The patient reports ongoing management of GERD with omeprazole 20 mg daily. - GERD symptoms are controlled with medication. Hypothyroidism: - taking levothyroxine 150 mcg. - TSH was repeated in Jun of this year, and its WNL Asthma: - The patient manages asthma with Advair, reporting stable control and improvement. Degenerative Arthritis: - Celebrax has helped a lot, he is taking 200 mg daily, and has been more active Patient Instructions - Continue with current medications as prescribed. - Return for f/u in 4 M Medications: Refilled fluticasone propion-salmeterol 250-50 mcg/dose (Advair Diskus) 1 inh inhalation BID 60 ea 2RF
== END 2025-07-11 12:38 | disposition home or self-care (01) ==
LOC: HO.HMCC 08:42
PROVIDERS: PCP Internal Medicine; Visit Provider Internal Medicine
DX: J45.40 Moderate persistent asthma, uncomplicated (principal); M15.9 Polyosteoarthritis, unspecified; K21.9 Gastro-esophageal reflux disease without esophagitis; E03.9 Hypothyroidism, unspecified